=== PATIENT | female | born 1980 | race Hispanic/Latino ===

== ENCOUNTER → 2022-11-10 11:24 | Outpatient (CLI) | payer OTHER, SELFPAY ==
--- NOTE | ~2022-11-10 | US_ITS ---
Pelvic ultrasound. Clinical History: Abnormal uterine bleeding Technique: Realtime transabdominal and transvaginal scanning of the pelvis was performed. Color flow Doppler and Doppler spectral analysis were performed. Findings: The uterus is anteverted. The endometrial stripe has a thickness of 10 mm. No focal mass i s identified. The right ovary measures 3.7 x 2.6 x 3.0 cm. No significant right ovarian or adnexal mass is seen. The left ovary measures 2.4 x 1.4 x 1.8 cm. No significant left ovarian or adnexal mass is seen. Vascular flow present in both ovaries on Doppler spectral analysis. There is no evidence of free fluid in the cul de sac. Impression: No significant abnormality seen. Reviewed, dictated and finalized at [facility]. Impression: No significant abnormality seen.
== END ==
PROVIDERS: PCP Obstetrics & Gynecology Gynecology; Visit Provider Obstetrics & Gynecology Gynecology
DX: N93.8 Other specified abnormal uterine and vaginal bleeding (principal)
CPT/HCPCS: 76856

== ENCOUNTER 2022-12-29 11:36 | Outpatient (CLI) | payer OTHER, SELFPAY ==
[2022-12-29 12:06] LABS: Hematocrit 40.2 % (37.0-47.0); Hemoglobin 13.4 g/dL (12.0-15.0); Mean Corpuscular HGB Conc 33.3 g/dl (32-36); Mean Corpuscular Hemoglobin 30.8 pg (26-34); Mean Corpuscular Volume 92.4 fl (80-100); Mean Platelet Volume 9.6 fl (7.4-10.4); Platelet Count Result 233 k/mm3 (150-375); Red Blood Count 4.35 M/mm3 (4.2-5.4); Red Cell Distribution Width 11.8 % (11.5-14.5); White Blood Count 5.8 K/mm3 (4.5-10.0)
[2022-12-29 12:19] LABS: Anion Gap 5 mmol/L (8-16); Blood Urea Nitrogen 13 mg/dL (7-17); Calcium 9.4 mg/dL (8.4-10.2); Carbon Dioxide 29 mmol/L (22-30); Chloride 102 mmol/L (98-107); Estimated Glomerular Filt Rate > 60; Glucose 84 mg/dL (65-110); Potassium 3.7 mmol/L (3.4-5.0); Sodium 136 mmol/L (137-145)
[2022-12-29 12:42] LABS: Vitamin D 25 Hydroxy 50.4 ng/mL
== END 2022-12-29 11:37 | disposition home or self-care (01) ==
PROVIDERS: Anesthesiology; PCP Family Medicine; Visit Provider Obstetrics & Gynecology Gynecology
DX: E55.9 Vitamin D deficiency, unspecified (principal); Z79.899 Other long term (current) drug therapy
CPT/HCPCS: 36415; 80048; 82306; 82728; 85027

== ENCOUNTER 2023-01-02 00:56 | Day surgery (SDC) | payer OTHER, SELFPAY ==
[2022-12-26 14:18] VITALS: BMI 24.9
--- NOTE | 2022-12-26 14:36 | PC.NURSE ---
Addendum entered by Marisa Herrera RN 12/28/22 13:09: HANDWROTE ARRIVAL TIME OF 1115 WITH A SURGERY TIME OF 1315 ON 01/02 TO PT'S PREOP INSTRUCTIONS. Addendum entered by Marisa Herrera RN 12/28/22 13:05: PLEASE DO NOT TAKE ANY MEDS THE MORNING OF SURGERY. Addendum entered by Dorothea Cruz RN 12/27/22 16:59: patient's bmp ordered for outpatient pre testing. Rn called patient and patient transferred to home care scheduler's voicemail to make appt for bmp lab work. Addendum entered by Dorothea Cruz RN 12/27/22 15:26: 12-27-2022: patient notified to not take any morning meds the morning of surgery. She will be npo and without ANY medications that morning. Instructed to hold the amiloride and the losartan and potassium citrate the morning of surgery. Notified she will need blood work (BMP) the morning of surgery. Original Note: Report to the Outpatient Waiting Room, entrance under the green pavilion located off [facility], at time on date . Planned Procedure Time: . Time changes happen often and if your time is changed the preop area will call you the afternoon before. - You and your visitor will be asked to self-screen and do not enter if you have any COVID symptoms. - A mask is optional within the hospital at this time. Patients may have clear liquids (water, carbonated beverages, clear teas, apple juice) until 3 hours prior to surgery with a maximum of 20 ounces. - No food from midnight until time of surgery - Take the following medications with a SIP of water the morning of surgery: __Amiloride, losartan____ DO NOT STOP ANY OF YOUR OTHER PRESCRIPTION MEDICATIONS PRIOR TO SURGERY ?EXCEPT THE FOLLOWING Medications to discontinue per physician ____do not take potassium citrate the morning of surgery only. may take until the morning of. Please no make-up, nail persian, hairspray, perfume, deodorant, or body powder the day of surgery. No jewelry (including any body piercings) or valuables the day of surgery, leave them at home. Please take a shower or bath the night before, or the morning of, surgery with an antibacterial soap. Wear comfortable, loose fitting clothing. Children are encouraged to wear pajamas. - Jewelry must be removed prior to entering the operating room. Rings and piercings that are not removed may be cut off. - The hospital will not accept responsibility for valuables. - Please leave all valuables, including medications, at home the day of surgery. If you are going home after surgery, a licensed driver engineer must drive you home. - NO public transportation without another adult if you receive anesthesia. - We recommend that an adult stay with you for 24 hours following discharge. - We also recommend that you do not drive, make important decision, drink alcoholic beverages, or take any drugs that were not prescribed by your health care provider for at least 24 hours after your discharge time. . Follow any additional instructions given to you from your surgeon. If you or anyone in your household have experienced Covid symptoms in the past week, please notify your surgeon or the nurse liaison at the phone number below for possible testing. Telephone instructions given to __Mirian (patient) and asked if any additional questions and then verbalized understanding. Patient advised to call surgeon office or pre surgery nurse liaison [phone] if any additional questions.
--- NOTE | 2023-01-02 07:31 | P.HP_ITS ---
History of Present Illness History of Present Illness Consent: Risks, benefits, and alternatives have been discussed and questions answered. Patient agrees to proceed with procedure. Chief complaint: Menorrhagia with anemia Narrative: Mirian Blanca is a 42 year old female with chronic anemia. Patient has received iron transfusions. The GI workup has been negative. Review of her cycles reveals changing her pad every 2hours for 24hours each cycle. Pelvic ultrasound was normal. It was recommended to proceed with D&C hysteroscopy to further evaluate. Risks of infection, bleeding, perforation, and possible pathology are reviewed. Patient voices understanding and agrees to proceed. 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 Social History Social History Smoking status: Never smoker Second hand tobacco smoke exposure: Yes (not currently) Substance use: never Substance use type: does not use Living arrangements: with family Spiritual care concerns: No Meds Home Medications and Allergies Home Medications Medication Instructions Recorded Confirmed Type amiloride 5 mg tablet 5 mg PO DAILY 12/26/22 12/26/22 History ketoconazole 2 % shampoo applic topical 12/26/22 History losartan 25 mg tablet 25 mg PO DAILY 12/26/22 12/26/22 History potassium citrate 10 mEq (1,080 10 meq PO QID 12/26/22 12/26/22 History mg) tablet,extended release Allergies Allergy/AdvReac Type Severity Reaction Status Date / Time No Known Allergies Allergy Verified 12/26/22 14:48 Exam Const: General: healthy appearing and alert Orientation/consciousness: patient oriented x3 Resp: Effort & Inspection: normal respiratory effort GI: GI Palp: Yes Soft to palpation, No Tenderness to palpation present (GI) and No Palpable mass present : External Female Exam: normal external appearance Speculum Exam - Vagina: normal appearance of the vagina and normal vaginal discharge Speculum Exam - Cervix: normal appearance of the cervix Bimanual exam- vagina & uterus: uterine size normal, consistency normal and other (Pelvic floor tense and tender bilateral) Bimanual Exam- Adnexa, other: normal adnexae and No adnexal tenderness Neuro: General: patient oriented x3 Assessment and Plan Assessment and plan (1) Menorrhagia: Code(s): N92.0 - Excessive and frequent menstruation with regular cycle Status: Acute Assessment and Plan: Plan to proceed with D&C hysteroscopy for further evaluation (2) Anemia: Code(s): D64.9 - Anemia, unspecified Status: Acute
--- NOTE | 2023-01-02 07:31 | WPDHPUPDATE1 ---
History and Physical Update Update Date/Time: 01/02/23 07:31 History and Physical has been reviewed, including an updated exam of the patient. There are NO changes in the patient's condition. Risks, benefits, and alternatives have been discussed and questions answered. Patient agrees to proceed with procedure.
[2023-01-02 11:38] VITALS: BP 127/77; PULSE 60; RESP 20; TEMP 36.7; O2SAT 100
[2023-01-02] MEDS: ACETAMINOPHEN 500 MG TABLET 1000 MG PO (12:03)
[2023-01-02] MEDS: LACTATED RINGERS 1,000 ML 30 ML IV CONT (12:15)
--- NOTE | 2023-01-02 12:24 | P.PNAN_ITS ---
Anes - Initial Pre Proc Eval Procedure: Operation Date: 01/02/23 13:15 Proposed Procedures p Hysteroscopy Dilation and Curettage - Shirlene Wyman MD Date/Time: 01/02/23 12:24 Surgeon: Shirlene Wyman MD Pre Op Diagnosis: Menorrhagia with anemia Patient Data Age: 42 Gender: F Height: 1.57 m Weight: 61.8 kg Allergies Allergy/AdvReac Type Severity Reaction Status Date / Time No Known Allergies Allergy Verified 01/02/23 11:42 Home Medications Medication Instructions Recorded Confirmed Type amiloride 5 mg tablet 5 mg PO DAILY 12/26/22 01/02/23 History ketoconazole 2 % shampoo applic topical 12/26/22 History losartan 25 mg tablet 25 mg PO DAILY 12/26/22 01/02/23 History potassium citrate 10 mEq (1,080 10 meq PO QID 12/26/22 01/02/23 History mg) tablet,extended release Patient hx anesthesia problems: none Family hx anesthesia problems: none Results Review: All pre-operative results and documents have been reviewed as part of the pre- operative evaluation. 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 Social History Social History Smoking status: Never smoker Second hand tobacco smoke exposure: Yes (not currently) Substance use: never Substance use type: does not use Living arrangements: with family Spiritual care concerns: No Anes - Eval Final PreProcedure Day of Procedure 01/02/23 12:24 Patient weight: normal Heart: regular rate and rhythm Lungs: clear to auscultation Airway: Mallampati scale class II Neurological: alert and oriented Last oral intake: >/= 8 hours ASA classification: II Emergent: no Anesthetic plan: proceed Anesthesia type and monitoring: general GIVS and standard monitoring Results Review: All pre-operative results and documents have been reviewed as part of the pre- operative evaluation. Informed Consent: The patient's anesthetic plan and its attendant risks and benefits were discussed with the patient/family/POA. Questions were solicited and answers provided to the satisfaction of the patient/family/POA.
[2023-01-02] MEDS: KETOROLAC 30 MG/ML VIAL (*BKC) IV PUSH (12:54)
[2023-01-02] MEDS: LIDOCAINE HCL 1% LOCAL INJ 20 ML VIAL 10 ML INFILTRATE (12:57)
--- NOTE | 2023-01-02 13:05 | W.PM.PROC2 ---
Procedure Note - Detailed Date of Procedure 01/02/23 Pre-op Diagnosis Menorrhagia with anemia Post-op Diagnosis Same Procedure Performed D&C hysteroscopy Surgeon Shirlene Wyman MD Anesthesia MAC Findings Uterus sounds to 8cm and appears grossly normal secretory Description of Procedure The patient is taken to the operating room and placed under anesthesia in the dorsal lithotomy position. She was prepped and draped in the usual sterile fashion. Marion speculum was placed in the vagina and the cervix grasped on the anterior lip with a tenaculum. The uterus is sounded to 8cm. The diagnostic hysteroscope was placed and with no abnormalities noted it is removed. The 00 sharp curette is used to curette the endometrium until a good uterine cry was noted in all areas. All instruments were then removed. Patient was awakened from anesthesia and taken to recovery in stable condition. Sponge, needle, and instrument counts are correct per the OR staff. Estimated Blood Loss 5 Drains No Packing No Pathology Yes (Endometrial curettings) Complications No immediate complications Condition Stable Disposition PACU
[2023-01-02 13:07] VITALS: BP 110/69; PULSE 65; RESP 16; O2SAT 100
[2023-01-02 13:35] VITALS: BP 106/74; PULSE 60; RESP 16; O2SAT 100
[2023-01-02 14:00] VITALS: BP 113/90; PULSE 57; RESP 16
== END 2023-01-02 14:16 | disposition home or self-care (01) ==
PROVIDERS: PCP Family Medicine; Visit Provider Obstetrics & Gynecology Gynecology
PROC: 0U5B8ZZ Destruction of Endometrium, Via Natural or Artificial Opening Endoscopic (ICD-10-PCS; CPT 58563; principal; 2023-01-02 13:15)
DX: N92.0 Excessive and frequent menstruation with regular cycle (principal); I10 Essential (primary) hypertension; D64.9 Anemia, unspecified
CPT/HCPCS: 58558; 88305; A9270; J1885; J2250; J2704; J3010; J7120

== ENCOUNTER 2024-07-26 10:35 | Outpatient (CLI) | payer OTHER, SELFPAY ==
--- NOTE | ~2024-07-26 | US_ITS ---
Pelvic ultrasound. Clinical History: Abnormal uterine bleeding Technique: Realtime transabdominal scanning of the pelvis was performed. Color flow Doppler and Doppl er spectral analysis were performed. Findings: The uterus is anteverted, and measures 9.9 x 4.1 x 5.3 cm. The endometrial stripe has a th ickness of 14 mm. No focal mass is identified. The right ovary measures 2.5 x 1.8 x 3.1 cm. No significant right ovarian or adnexal mass is seen. The left ovary measures 2.9 x 1.8 x 2.4 cm. No significant left ovarian or adnexal mass is seen. There is no evidence of free fluid in the cul de sac. Impression: Unremarkable pelvic ultrasound. Reviewed, dictated and finalized at location . Impression: Unremarkable pelvic ultrasound.
== END 2024-07-26 10:36 | disposition home or self-care (01) ==
PROVIDERS: PCP Family Medicine; Visit Provider Nurse Practitioner
DX: N93.8 Other specified abnormal uterine and vaginal bleeding (principal); R10.2 Pelvic and perineal pain
CPT/HCPCS: 76856

== ENCOUNTER 2024-07-26 10:39 | Outpatient (CLI) | payer OTHER, SELFPAY ==
--- NOTE | ~2024-07-26 | US_ITS ---
Renal-Bladder ultrasound Clinical History: Nephrolithiasis Technique: Real-time sonographic imaging of the kidneys and urinary bladder was performed. Findings: The right kidney measures 9.1 cm in length and the left kidney measures 9.3 cm. There is mi ld bilateral hydronephrosis. Renal cortical echogenicity is within normal limits. No renal mass lesio n is identified. The urinary bladder is moderately distended at the time of this exam. No intraluminal echoes are iden tified. No abnormal wall thickening is seen. Impression: Mild bilateral hydronephrosis. Reviewed, dictated and finalized at location M. Impression: Mild bilateral hydronephrosis.
== END 2024-07-26 10:40 | disposition home or self-care (01) ==
LOC: MICIMG 10:39
PROVIDERS: PCP Family Medicine
DX: N13.30 Unspecified hydronephrosis (principal); N20.0 Calculus of kidney
CPT/HCPCS: 76775

== ENCOUNTER 2024-11-25 00:33 | Day surgery (SDC) | payer OTHER, SELFPAY ==
[2024-11-14 09:49] VITALS: BMI 25.4
--- NOTE | 2024-11-14 10:02 | SUR.PREOP ---
Report to the Outpatient Waiting Room, entrance under the green pavilion located off [facility], at time 0600 on date 11/25/24. Planned Procedure Time: 0730.? Time changes happen often and if your time is changed the preop area will call you the afternoon before. - You and your visitor will be asked to self-screen and do not enter if you have any COVID symptoms. Please call surgeon if you need to reschedule. - A mask is optional within the hospital at this time. Patients may have clear liquids (water, carbonated beverages, clear teas, apple juice) until 3 hours prior to surgery with a maximum of 20 ounces. - No food from midnight until time of surgery and no smoking, or chewing tobacco (or any form of nicotine). No chewing gum, candy or mints. - Infants may have breast milk until 4 hours before surgery, formula 6 hours prior to surgery. - Children will be allowed to drink immediately following surgery.? If applicable, please bring a bottle or sippy cup to assist with drinking. Juice, water, soda, and popsicles are readily available.? For infants on formula, please bring formula the day of surgery.? Pacifiers are allowed. Take only the following medications with a SIP of water on the morning of surgery: _hold morning meds day of surgery DO NOT STOP ANY OF YOUR OTHER PRESCRIPTION MEDICATIONS PRIOR TO SURGERY EXCEPT THE FOLLOWING Hold all vitamins and supplements for 3 days per anesthesiologist. Medications to discontinue per physician ____amiloride, losartan, potassium morning of surgery Date to take last dose Please no make-up, nail greenlandic, hairspray, perfume, deodorant, or body powder the day of surgery.? No jewelry (including any body piercings) or valuables the day of surgery, leave them at home.? Please take a shower or bath the night before, or the morning of, surgery with an antibacterial soap.? Wear comfortable, loose fitting clothing.? Children are encouraged to wear pajamas. - Jewelry must be removed prior to entering the operating room.? Rings and piercings that are not removed may be cut off. - The hospital will not accept responsibility for valuables.? - Please leave all valuables, including medications, at home the day of surgery. If you are going home after surgery, a licensed hazmat cdl a driver must drive you home.? - NO public transportation without another adult if you receive anesthesia. - We recommend that an adult stay with you for 24 hours following discharge. - We also recommend that you do not drive, make important decision, drink alcoholic beverages, or take any drugs that were not prescribed by your health care provider for at least 24 hours after your discharge time. For Pediatric surgeries, we recommend two adults accompany the child home. Follow any additional instructions given to you from your surgeon. Telephone instructions given to _patient_and asked if any additional questions and then verbalized understanding. Patient advised to call surgeon office or pre surgery nurse liaison [phone] if any additional questions.
--- OUTSIDE RECORDS SUMMARY | 2024-11-25 00:36 | XMS_ITS | Encounter Summary ---
Author Organization [facility] Address [address] [place] [id number] Care Team Providers Care Web Development Manager Name Role Phone Olivia Roman DO Primary Care Provider [phone] Encounter Details Date Type Department Care Team (Latest Contact Info) Description 10/28/2019 [place] Message Enc [facility] Multispecialty Care - [facility] 3 [facility], [address] [phone] Jackson Sal MD 3 [facility], [address] [phone] Medication Questions Social History Tobacco Use Types Packs/Day Years Used Date Smoking Tobacco: Never Smokeless Tobacco: Never Alcohol Use Standard Drinks/Week Comments Not Currently 0 (1 standard drink = 0.6 oz pur e alcohol) PHQ-2 Answer Date Recorded PHQ-2 Score 0 09/19/2019 Comments No Sex and Gender Information Value Date Recorded Sex Assigned at Female 03/19/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
--- OUTSIDE RECORDS SUMMARY | 2024-11-25 00:36 | XMS_ITS | Encounter Summary ---
Author Organization [facility] Address Count includes the [facility] [place] [address] Care Team Providers Care Director Of Collections And Archives Name Role Phone Olivia Roman DO Primary Care Provider [phone] Encounter Details Date Type Department Care Team (Late st Contact Info) Description 03/15/2020 ConsortiEXt Message Enc [facility] Medical Group Multispecialty Care - [facility] 3 [facility], [address] [place] [phone] Arpita France APNP [address] [place] [address] Question Social History Tobacco Use Types Packs/Day Years Used Date Smoking Tobacco: Never Smokeless Tobacco: Never Alcohol Use Standard Drinks/Week Comments Not Currently 0 (1 standard drink = 0.6 oz pur e alcohol) PHQ-2 Answer Date Recorded PHQ-2 Score 0 09/19/2019 Comments No Sex and Gender Information Value Date Recorded Sex Assigned at Female 03/19/2024 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 No / Unsure 03/13/2020 7:38 AM NONPROFIT FUNDRAISER documented as of this encounter Plan of Treatment Not on file documented as of this encounter Visit Diagnoses Not on filedocumented in this encounter Additional Health Concerns Infection Onset Date Last Indicated Resolved Time COVID-19 Rule Out 06/23/2021 06/23/2021 06/23/2021 9:50 AM CDT COVID-19 Rule Out 07/13/2022 07/13/2022 07/13/2022 12:20 PM CDT Assessment Noted Time PHQ-9 Depression Total Score: 10 019 9:47 AM NONPROFIT FUNDRAISER documented as of this encounter Care Teams Director Of Collections And Archives Relationship Specialty [place] [address] [place] [id number] PCP - General FAMILY PRACTICE 11/22/19 documented as of this encounter
--- OUTSIDE RECORDS SUMMARY | 2024-11-25 00:36 | XMS_ITS | Encounter Summary ---
Author Organization [facility] Address [address] [place] [address] Care Team Providers Care Websphere Administrator Name Role Phone Olivia Roman DO Primary Care Provider [phone] Encounter Details Date Type Department Care Team (Late st Contact Info) Description 05/19/2022 Therapy Plan [facility] [place] [address] Olivia Roman DO [facility] [place] [address] Social History Tobacco Use Types Packs/Day Years Used Date Smoking Tobacco: Never Smokeless Tobacco: Never Alcohol Use Standard Drinks/Week Comments Not Currently 0 (1 standard drink = 0.6 oz pur e alcohol) PHQ-2 Answer Date Recorded Patient Health Questionnaire-2 Score 0 05/10/2022 Comments No Sex and Gender Information Value Date Recorded Sex Assigned at Female 03/19/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 No / Unsure 05/20/2022 2:20 PM CDT documented as of this encounter Plan of Treatment Not on file documented as of this encounter Visit Diagnoses Diagnosis Anemia, unspecified- Primary documented in this encounter Additional Health Concerns Infection Onset Date Last Indicated Resolved Time COVID-19 Rule Out 07/13/2022 07/13/2022 07/13/2022 12:20 PM CDT Assessment Noted Time PHQ-9 Depression Total Score: 5 05/20/19 22 10:03 AM CDT documented as of this encounter Care Teams Websphere Administrator Relationship Specialty Start Date End Date Olivia Roman DO [address] [place] [address] PCP - General FAMILY PRACTICE 11/22/19 documented as of this encounter
--- OUTSIDE RECORDS SUMMARY | 2024-11-25 00:36 | XMS_ITS | Encounter Summary ---
Author Organization [facility] Address [address] [place] [address] Care Team Providers Care Utilization Review Specialist Name Role Phone Olivia Roman Primary Care Provider [phone] Encounter Details Date Type Department Care Team (Late st Contact Info) Description 09/11/2019 Bardolino Grillet Message Enc [facility] Medical [facility] Family Medicine - [place] [address], [address] [place] [phone] Ambrosio Beth DO [address] [place], [place] [phone] RE: Referral Request Social History Tobacco Use Types Packs/Day Years Used Date Smoking Tobacco: Never Smokeless Tobacco: Never Alcohol Use Standard Drinks/Week Comments Not Currently 0 (1 standard drink = 0.6 oz pur e alcohol) PHQ-2 Answer Date Recorded PHQ-2 Score 3 02/14/2019 Comments No Sex and Gender Information Value Date Recorded Sex Assigned at Female 03/19/2024 9:04 AM 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 No / Unsure 09/09/2019 3:34 PM CDT documented as of this encounter [...] Depression Total Score: 10 019 9:47 AM SIGN OUT CLERK documented as of this encounter Care Teams Utilization Review Specialist Relationship Specialty Start Date End Date Olivia Roman DO [address] [place] [id number] PCP - General FAMILY PRACTICE 11/22/19 documented as of this encounter
--- OUTSIDE RECORDS SUMMARY | 2024-11-25 00:36 | XMS_ITS | Encounter Summary ---
Author Organization [facility] Address Formerly [facility] [place] [address] Care Team Providers Care Web Content Manager Name Role Phone Olivia Roman DO Primary Care Provider [phone] Encounter Details Date Type Department Care Team (Late st Contact Info) Description 12/02/2019 FluGent Message Enc [facility] Medical Group Multispecialty Care - [facility] 3 [facility], [address] [phone] Jackson Sal MD 3 [facility], [address] [id number] Test Results Social History Tobacco Use Types Packs/Day Years Used Date Smoking Tobacco: Never Smokeless Tobacco: Never Alcohol Use Standard Drinks/Week Comments Not Currently 0 (1 standard drink = 0.6 oz pur e alcohol) PHQ-2 Answer Date Recorded PHQ-2 Score 0 09/19/2019 Comments No Sex and Gender Information Value Date Recorded Sex Assigned at Female 03/19/2024 9:04 AM CONTRACTS ATTORNEY Legal Sex Female 2:39 PM CDT Gender Identity Not on file Sexual Orientation Not on file COVID-19 Exposure Response Date Recorded In the last month, have you been in contact with someone who was confirmed or suspected to have Coronavirus / COVID-19? No / Unsure 11/29/2019 2:40 PM CDT documented as of this encounter Progress Notes * Jackson Sal MD - 12/03/2019 2:16 PM CDT PTH is different from the thyroid; Level is appropriate; no further labs needed in that regard thx * Urszula Coyne MA - 12/03/2019 7:50 AM CDTFrom: Mirian Kim Evangelist To: Jackson Sal MD Sent: 12/02/2019 10:23 PM CDT Subject: Test Results Hello, With my PTH being mildly low the normal range. Do you recommend I get a full thyroid panel and/or get my phosphorus levels checked? Thank you. documented in this encounter Plan of Treatment Not on file documented as of this encounter Visit Diagnoses Not on filedocumented in this encounter Additional Health Concerns Infection Onset Date Last Indicated Resolved Time COVID-19 Rule Out 06/23/2021 06/23/2021 06/23/2021 9:50 AM CDT COVID-19 Rule Out 07/13/2022 07/13/2022 07/13/2022 12:20 PM CDT Assessment Noted Time PHQ-9 Depression Total Score: 10 019 9:47 AM CONTRACTS ATTORNEY documented as of this encounter Care Teams Web Content Manager Relationship Specialty Start Date End Date Olivia Roman DO [address] [place] [address] PCP - General FAMILY PRACTICE 11/22/19 documented as of this encounter
--- OUTSIDE RECORDS SUMMARY | 2024-11-25 00:36 | XMS_ITS | Encounter Summary ---
Author Organization [facility] Address [address] [place] [address] Care Team Providers Care Events Director Name Role Phone Olivia Roman DO Primary Care Provider [phone] Encounter Details Date Type Department Care Team (Late st Contact Info) Description 12/31/2019 Yuanpei Translation Message Enc [facility] Medical Group Multispecialty Care - [address], [address] [place] [address] [facility] Provider [facility] hour urine Social History Tobacco Use Types Packs/Day Years Used Date Smoking Tobacco: Never Smokeless Tobacco: Never Alcohol Use Standard Drinks/Week Comments Not Currently 0 (1 standard drink = 0.6 oz pur e alcohol) PHQ-2 Answer Date Recorded PHQ-2 Score 0 09/19/2019 Comments No Sex and Gender Information Value Date Recorded Sex Assigned at Female 03/19/2024 9:04 AM CHEMICAL TREATMENT PLANT TECHNICIAN Legal Sex Female 2:39 PM CDT Gender Identity Not on file Sexual Orientation Not on file COVID-19 Exposure Response Date Recorded In the last month, have you been in contact with someone who was confirmed or suspected to have Coronavirus / COVID-19? No / Unsure 01/03/2020 2:30 PM CDT documented as of this encounter [...] Depression Total Score: 10 019 9:47 AM CHEMICAL TREATMENT PLANT TECHNICIAN documented as of this encounter Care Teams Events Director Relationship Specialty Start Date End Date Olivia Roman DO [address] [place] [address] PCP - General FAMILY PRACTICE 11/22/19 documented as of this encounter
--- OUTSIDE RECORDS SUMMARY | 2024-11-25 00:36 | XMS_ITS | Encounter Summary ---
Author Organization [facility] Address [facility] [place] [address] Care Team Providers Care Acoustical Logging Engineer Name Role Phone Olivia Roman DO Primary Care Provider [phone] Reason for Visit * Reason Onset Date Comments Follow Up Call 03/12/2020 blood pressure Encounter Details Date Type Department Care Team (Late st Contact Info) Description 03/12/2020 demandmart Message Enc [facility] Medical Group Family Medicine - [place] [address] [facility], [address] [place] [phone] Olivia Roman DO [address] [place] [address] RE: Follow Up/Update Social History Tobacco Use Types Packs/Day Years Used Date Smoking Tobacco: Never Smokeless Tobacco: Never Alcohol Use Standard Drinks/Week Comments Not Currently 0 (1 standard drink = 0.6 oz pur e alcohol) PHQ-2 Answer Date Recorded PHQ-2 Score 0 09/19/2019 Comments No Sex and Gender Information Value Date Recorded Sex Assigned at Female 03/19/2024 9:04 AM PERIOPERATIVE NURSE Legal Sex Female 2:39 PM CDT Gender Identity Not on file Sexual Orientation Not on file COVID-19 Exposure Response Date Recorded In the last month, have you been in contact with someone who was confirmed or suspected to have Coronavirus / COVID-19? No / Unsure 03/13/2020 7:38 AM PERIOPERATIVE NURSE documented as of this encounter Progress Notes * India Porter RN - 03/12/2020 4:22 PM CST Called patient and she states her blood pressure has gradually increased over the last month or so.She states it was in the 130's but recently it has been 140/109 and today 141/104. She wonders if it is higher due to the pain she is having. She states she has an appointment on 03/18/[address] Boyer. Patient has been scheduled with Dr. Roman for Monday03/13/20 for evaluation. OPERATIVE NURSE documented in this encounter Plan of Treatment Not on file documented as of this encounter Visit Diagnoses Not on filedocumented in this encounter Additional Health Concerns Infection Onset Date Last Indicated Resolved Time COVID-19 Rule Out 06/23/2021 06/23/2021 06/23/2021 9:50 AM CDT COVID-19 Rule Out 07/13/2022 07/13/2022 07/13/2022 12:20 PM CDT Assessment Noted Time PHQ-9 Depression Total Score: 10 019 9:47 AM PERIOPERATIVE NURSE documented as of this encounter Care Teams Acoustical Logging Engineer Relationship Specialty Start Date End Date Olivia Roman DO [address] [place] [id number] PCP - General FAMILY PRACTICE 11/22/19 documented as of this encounter
--- OUTSIDE RECORDS SUMMARY | 2024-11-25 00:36 | XMS_ITS | Encounter Summary ---
Author Organization [facility] Address [facility] [place] [address] Care Team Providers Care Branch General Manager Name Role Phone Olivia Roman DO Primary Care Provider [phone] Encounter Details Date Type Department Care Team (Latest Contact Info) Description 12/27/2019 VMIX Media Message Enc [facility] Medical Group Multispecialty Care - [facility] 3 [facility], [address] [place] [address] Arpita France APNP [address] [place] [address] Follow Up/Update Social History Tobacco Use Types Packs/Day Years Used Date Smoking Tobacco: Never Smokeless Tobacco: Never Alcohol Use Standard Drinks/Week Comments Not Currently 0 (1 standard drink = 0.6 oz pur e alcohol) PHQ-2 Answer Date Recorded PHQ-2 Score 0 09/19/2019 Comments No Sex and Gender Information Value Date Recorded Sex Assigned at Female 03/19/2024 9:04 AM EXHIBIT SPECIALIST Legal Sex Female 2:39 PM CDT Gender Identity Not on file Sexual Orientation Not on file COVID-19 Exposure Response Date Recorded In the last month, have you been in contact with someone who was confirmed or suspected to have Coronavirus / COVID-19? No / Unsure 12/23/2019 10:29 AM CDT documented as of this encounter Progress Notes * Paty Hernandez MA - 12/31/2019 10:44 AM CDT Are you okay with this? documented in this encounter Plan of Treatment Not on file documented as of this encounter Visit Diagnoses Not on filedocumented in this encounter Additional Health Concerns Infection Onset Date Last Indicated Resolved Time COVID-19 Rule Out 06/23/2021 06/23/2021 06/23/2021 9:50 AM CDT COVID-19 Rule Out 07/13/2022 07/13/2022 07/13/2022 12:20 PM CDT Assessment Noted Time PHQ-9 Depression Total Score: 10 02/14/ 019 9:47 AM EXHIBIT SPECIALIST documented as of this encounter Care Teams Branch General Manager Relationship Specialty Start Date End Date Olivia Roman DO [address] [place] [address] PCP - General FAMILY PRACTICE 11/22/19 documented as of this encounter
--- OUTSIDE RECORDS SUMMARY | 2024-11-25 00:36 | XMS_ITS | Encounter Summary ---
Author Organization [facility] Address [address] [place] [address] Care Team Providers Care Customer Support Consultant Name Role Phone Olivia Roman DO Primary Care Provider [phone] Encounter Details Date Type Department Care Team (Late st Contact Info) Description 05/10/2022 [employer] Message Enc [facility] Medical Group Family Medicine - [place] [address] [facility], [address] [place] [address] Olivia Roman DO [address] [place], [place] [phone] Lab test Social History Tobacco Use Types Packs/Day Years Used Date Smoking Tobacco: Never Smokeless Tobacco: Never Alcohol Use Standard Drinks/Week Comments Not Currently 0 (1 standard drink = 0.6 oz pur e alcohol) PHQ-2 Answer Date Recorded Patient Health Questionnaire-2 Score 0 05/10/2022 Comments No Sex and Gender Information Value Date Recorded Sex Assigned at Female 03/19/2024 9:04 AM CIRCUIT BOARD INSPECTOR Legal Sex Female 2:39 PM CDT Gender Identity Not on file Sexual Orientation Not on file COVID-19 Exposure Response Date Recorded In the last 10 days, have yo u been in contact with someone who was confirmed or suspected to have Coronavirus/COVID-19? No / Unsure 05/11/2022 8:45 AM CIRCUIT BOARD INSPECTOR documented as of this encounter Functional Status * Over the past 2 weeks, how often have you been bothered by any of the following problems? Question Answer Date of Assessment Author Status Little interest or pleasure in doing things Not at all 05/10/2022 8:15 AM Sahra Nuñez MA Act milo Feeling down, depressed, or hopeless Not at all 05/10/2022 8:15 AM Sahra Nuñez MA Active Patient Health Questionnaire-2 Score 0 05/10/2022 8:15 AM Sahra Nuñez MA Active documented as of this encounter Plan of Treatment Not on file documented as of this encounter Visit Diagnoses Not on filedocumented in this encounter Additional Health Concerns Infection Onset Date Last Indicated Resolved Time COVID-19 Rule Out 07/13/2022 07/13/2022 07/13/2022 12:20 PM CDT Assessment Noted Time PHQ-9 Depression Total Score: 5 05/20/19 22 10:03 AM CDT documented as of this encounter Care Teams Customer Support Consultant Relationship Specialty [place] [address] [place] [address] PCP - General FAMILY PRACTICE 11/22/19 documented as of this encounter
--- OUTSIDE RECORDS SUMMARY | 2024-11-25 00:36 | XMS_ITS | Encounter Summary ---
Author Organization [facility] Address [address] [place] [address] Care Team Providers Care Pump House Operator Name Role Phone Olivia Roman DO Primary Care Provider [phone] Encounter Details Date Type Department Care Team (Late st Contact Info) Description 05/04/2020 [employer]Practice Group Message Enc [facility] Medical Group Multispecialty Care - [facility] 3 [facility], [address] [phone] [place], [facility] Provider RE:Appointment Social History Tobacco Use Types Packs/Day Years Used Date Smoking Tobacco: Never Smokeless Tobacco: Never Alcohol Use Standard Drinks/Week Comments Not Currently 0 (1 standard drink = 0.6 oz pur e alcohol) PHQ-2 Answer Date Recorded PHQ-2 Score - If the patient scores above 3, please move on to questions 3-9 0 03/26/2020 Comments No Sex and Gender Information Value Date Recorded Sex Assigned at Female 03/19/2024 9:04 AM FIELD AIDE Legal Sex Female 2:39 PM CDT Gender Identity Not on file Sexual Orientation Not on file COVID-19 Exposure Response Date Recorded In the last month, have you been in contact with someone who was confirmed or suspected to have Coronavirus / COVID-19? No / Unsure 04/20/2020 2:54 PM FIELD AIDE documented as of this encounter Plan of Treatment Not on file documented as of this encounter Visit Diagnoses Not on filedocumented in this encounter Additional Health Concerns Infection Onset Date Last Indicated Resolved Time COVID-19 Rule Out 06/23/2021 06/23/2021 06/23/2021 9:50 AM CDT COVID-19 Rule Out 07/13/2022 07/13/2022 07/13/2022 12:20 PM CDT Assessment Noted Time PHQ-9 Depression Total Score: 10 019 9:47 AM FIELD AIDE documented as of this encounter Care Teams Pump House Operator Relationship Specialty Start Date End Date Olivia Roman DO [address] [place] [address] PCP - General FAMILY PRACTICE 11/22/19 documented as of this encounter
--- OUTSIDE RECORDS SUMMARY | 2024-11-25 00:36 | XMS_ITS | Encounter Summary ---
Author Organization [facility] Address [address] [place] [address] Care Team Providers Care Director Surface Transportation Name Role Phone Olivia Roman DO Primary Care Provider [phone] Encounter Details Date Type Department Care Team (Late st Contact Info) Description 02/12/2024 Think[employer] Message Enc [facility] Medical Group Family Medicine - [place], [address] [place] [address] [place], [facility] Provider Lab error Social History Tobacco Use Types Packs/Day Years Used Date Smoking Tobacco: Never Passive Smoke Exposure: Never Smokeless Tobacco: Never Alcohol Use Standard Drinks/Week Comments Not Currently 0 (1 standard drink = 0.6 oz pur e alcohol) PHQ-2 Answer Date Recorded Patient Health Questionnaire-2 Score 0 10/30/2023 Comments No Sex and Gender Information Value Date Recorded Sex Assigned at Female 03/19/2024 9:04 AM METALLURGICAL TESTER Legal Sex Female 2:39 PM CDT Gender Identity Not on file Sexual Orientation Not on file documented as of this encounter Plan of Treatment Not on file documented as of this encounter Visit Diagnoses Not on filedocumented in this encounter Additional Health Concerns Assessment Noted Time PHQ-9 Depression Total Score: 0 10/30/19 24 2:12 PM CDT documented as of this encounter Care Teams Director Surface Transportation Relationship Specialty Start Date End Date Olivia Roman DO [address] [place] [address] PCP - General FAMILY PRACTICE 11/22/19 documented as of this encounter
--- OUTSIDE RECORDS SUMMARY | 2024-11-25 00:36 | XMS_ITS | Encounter Summary ---
Author Organization [facility] Address [facility] [place] [address] Care Team Providers Care Housing And Residence Life Director Name Role Phone Olivia Roman DO Primary Care Provider [phone] Encounter Details Date Type Department Care Team (Late st Contact Info) Description 03/11/2020 SocialBuyt Message Enc [facility] Medical Group Multispecialty Care - [facility] 3 [facility], [address] [place] [phone] Arpita France APNP [address] [place] [address] RE: Question Social History Tobacco Use Types Packs/Day Years Used Date Smoking Tobacco: Never Smokeless Tobacco: Never Alcohol Use Standard Drinks/Week Comments Not Currently 0 (1 standard drink = 0.6 oz pur e alcohol) PHQ-2 Answer Date Recorded PHQ-2 Score 0 09/19/2019 Comments No Sex and Gender Information Value Date Recorded Sex Assigned at Female 03/19/2024 9:04 AM MIRROR FINISHING MACHINE OPERATOR Legal Sex Female 2:39 PM CDT Gender Identity Not on file Sexual Orientation Not on file COVID-19 Exposure Response Date Recorded In the last month, have you been in contact with someone who was confirmed or suspected to have Coronavirus / COVID-19? No / Unsure 03/13/2020 7:38 AM MIRROR FINISHING MACHINE OPERATOR documented as of this encounter Plan of Treatment Not on file documented as of this encounter Visit Diagnoses Not on filedocumented in this encounter Additional Health Concerns Infection Onset Date Last Indicated Resolved Time COVID-19 Rule Out 06/23/2021 06/23/2021 06/23/2021 9:50 AM CDT COVID-19 Rule Out 07/13/2022 07/13/2022 07/13/2022 12:20 PM CDT Assessment Noted Time PHQ-9 Depression Total Score: 10 019 9:47 AM MIRROR FINISHING MACHINE OPERATOR documented as of this encounter Care Teams Housing And Residence Life Director Relationship Specialty Start Date End Date Olivia Roman DO [address] [place] [address] PCP - General FAMILY PRACTICE 11/22/19 documented as of this encounter
--- OUTSIDE RECORDS SUMMARY | 2024-11-25 00:36 | XMS_ITS | Encounter Summary ---
Author Organization [facility] Address [address] [place] [address] Care Team Providers Care Exchange Engineer Name Role Phone Olivia Roman DO Primary Care Provider [phone] Encounter Details Date Type Department Care Team (Late st Contact Info) Description 09/16/2024 Layer 4 Communicationst Message Enc [facility] Medical Group Family Medicine - [place] [address] [facility], [address] [place] [address] Olivia Roman DO [address] [place] [address] Iron infusion Social History Tobacco Use Types Packs/Day Years Used Date Smoking Tobacco: Never Passive Smoke Exposure: Never Smokeless Tobacco: Never Alcohol Use Standard Drinks/Week Comments Not Currently 0 (1 standard drink = 0.6 oz pur e alcohol) PHQ-2 Answer Date Recorded Patient Health Questionnaire-2 Score 0 05/28/2024 Comments No Sex and Gender Information Value Date Recorded Sex Assigned at Female 03/19/2024 9:04 AM BRICK DROPPER Legal Sex Female 2:39 PM CDT Gender Identity Not on file Sexual Orientation Not on file documented as of this encounter Plan of Treatment Not on file documented as of this encounter Visit Diagnoses Not on filedocumented in this encounter Additional Health Concerns Assessment Noted Time PHQ-9 Depression Total Score: 0 05/29/19 25 2:17 PM CDT documented as of this encounter Care Teams Exchange Engineer Relationship Specialty Start Date End Date Olivia Roman DO [address] [place] [address] PCP - General FAMILY PRACTICE 11/22/19 documented as of this encounter
--- OUTSIDE RECORDS SUMMARY | 2024-11-25 00:36 | XMS_ITS | Encounter Summary ---
Author Organization [facility] Address [address] [place] [address] Care Team Providers Care Associate Professor Of Counseling Name Role Phone Olivia Roman DO Primary Care Provider [phone] Encounter Details Date Type Department Care Team (Late st Contact Info) Description 09/29/2020 FirstString Message Enc [facility] Medical Group Family Medicine - [place] [address] [facility], [address] [place] [address] Olivia Roman DO [address] [place] [address] RE: Test Results Social History Tobacco Use Types Packs/Day Years Used Date Smoking Tobacco: Never Smokeless Tobacco: Never Alcohol Use Standard Drinks/Week Comments Not Currently 0 (1 standard drink = 0.6 oz pur e alcohol) PHQ-2 Answer Date Recorded PHQ-2 Score - If the patient scores above 3, please move on to questions 3-9 0 08/26/2020 Comments No Sex and Gender Information Value Date Recorded Sex Assigned at Female 03/19/2024 9:04 AM CORPORATE TRAVEL COUNSELOR Legal Sex Female 2:39 PM CDT Gender Identity Not on file Sexual Orientation Not on file COVID-19 Exposure Response Date Recorded In the last month, have you been in contact with someone who was confirmed or suspected to have Coronavirus / COVID-19? No / Unsure 09/30/2020 8:03 AM CDT documented as of this encounter Plan of Treatment Not on file documented as of this encounter Visit Diagnoses Not on filedocumented in this encounter Additional Health Concerns Infection Onset Date Last Indicated Resolved Time COVID-19 Rule Out 06/23/2021 06/23/2021 06/23/2021 9:50 AM CDT COVID-19 Rule Out 07/13/2022 07/13/2022 07/13/2022 12:20 PM CDT Assessment Noted Time PHQ-9 Depression Total Score: 4 08/27/19 21 11:32 AM CDT documented as of this encounter Care Teams Associate Professor Of Counseling Relationship Specialty Start Date End Date Olivia Roman DO [address] [place] [address] PCP - General FAMILY PRACTICE 11/22/19 documented as of this encounter
--- OUTSIDE RECORDS SUMMARY | 2024-11-25 00:36 | XMS_ITS | Clinical Summary ---
Author Organization [facility] Address [address], [facility] [address] [place] [address] Phone Care Team Providers Care Amortization Clerk Name Role Phone Olivia Roman DO Primary Care Provider [phone] Ricci Ordonez DO Unavailable [phone] Allergies Active Allergy Reactions Criticality Noted Date Comments Cat Dander Itching,Hives,Other (see Comments) Low 09/18/2019 Dog Epithelium (Canis Lupus Familiaris) Other (see Comments),Itching Low 09/18/2019 Dust Mite Extract Itching Low 09/18/2019 Ferric Carboxymaltose Hives 06/06/2022 Medications losartan (COZAAR) 25 MG Tablet Take 25 mg by mouth daily. 06/08/2020 Active aMILoride (MIDAMOR) 5 MG Tablet Take 5 mg by mouth daily. 04/15/2020 Active potassium citrate (UROCIT K) 10 MEQ (1080 MG) Tablet Controlled Release Take 20 mEq by mouth 2 times daily. 09/16/2024 Active cholecalciferol (D2000 Ultra Strength) 2000 UNIT Capsule Take 2,000 Units by mouth. Active Active Problems No known active problems Encounters Date Type Department Care Team Description 11/11/2024 12:15 PM CDT Lab [facility] [address] [address] Lab, Cc [place] Iron deficiency anemia, unspecified iron deficiency anemia type 11/11/2024 11:15 AM CDT Office Visit [facility] [address] [phone] Aydee Piper, HR RECEPTIONIST, KILNMAN Iron deficiency anemia, unspecified iron deficiency anemia type (Primary Dx) 11/11/2024 Travel 09/30/2024 11:20 AM CDT Lab [facility] [address] [phone] Lab, [facility] Iron deficiency anemia, unspecified iron deficiency anemia type 09/30/2024 11:00 AM CDT Office Visit [facility] [address] [phone] Ricci Ordonez, DO Iron deficiency anemia, unspecified iron deficiency anemia type (Primary Dx) 09/30/2024 Travel from Last 3 Months Family History Relation Name Status Comments Child 1 Alive Child 2 Alive Child 3 Alive Father Alive Mother Alive Social History Tobacco Use Types Packs/Day Years Used Date Smoking Tobacco: Never Smokeless Tobacco: Never Tobacco Cessation:Counseling Given: Not Answered Alcohol Use Standard Drinks/Week Comments Yes 3 (1 standard drink = 0.6 oz pur e alcohol) per year Comments Unknown Sex and Gender Information Value Date Recorded Sex Assigned at Not on file Legal Sex Female 8:57 AM CDT Gender Identity Not on file Sexual Orientation Not on file Last Filed Vital Signs Vital Sign Reading Time Taken Comments Blood Pressure 120/76 11/11/2024 11:50 AM CDT Pulse 74 11/11/2024 11:50 AM CDT Temperature 36.7 C (98 F) 11/11/2024 11:50 AM CDT Respiratory Rate 18 11/11/2024 11:5 0 AM CDT Oxygen Saturation 99% 11/11/2024 11: 50 AM CDT Inhaled Oxygen Concentration - - Weight 65.6 kg (144 lb 11.2 oz) 025 11:50 AM CDT Height 157.5 cm (5' 2) 11/11/2024 11:5 0 AM CDT Body Mass Index 26.47 11/11/2024 11:50 AM CDT Plan of Treatment Upcoming Encounters Date Type Department Care Team (Late st Contact Info) Description 02/10/2025 11:00 AM HADOOP DEVELOPER Lab [facility] [address] [address] Lab, Cc [facility] 02/10/2025 11:15 AM HADOOP DEVELOPER Office Visit [facility] [place] [address] [place] [address] Ricci Ordonez, [address] [place] [address] Health Maintenance Due Date Last Done Comments Hepatitis B Immunization (1 of 3 - 19+ 3-dose series) 2000 Pap Smear 2002 Human Papillomavirus (HPV) Immunization (1 - 3-dose SCDM series) 2008 Cervical Cancer Screening (CCS) 12/22/2011 HPV/Cotest 12/22/2011 Influenza Immunization (#1) 11/04/202412/04, 11/25/2022, 12/15/2021, Additional history exists SARS-COV-2 Immunization ( season) 2024 01/29/2021, 05/12/2020 Mammogram 10/29/2025 10/29/2024, 10/05, 07/17/2023, Additional history exists Respiratory Syncytial Virus (RSV) Immunization (Adult) (1 - 1-dose 75+ series) 2056 TdaP Immunization Completed 01/07/2014, 07/28/2009 Hepatitis C Virus (HCV) Screening Completed 11/03/2023 Discussion re Starting/Frequency of Mammograms Completed 10/29/2024, 07/17/2023, 05/20/2022 Meningococcal Immunization (ACWY) Aged Out No longer eligible based on patient's age to complete this topic Pneumococcal Immunization Combined Aged Out No longer eligible based on patient's age to complete this topic Rotavirus Immunization Aged Out No lo nger eligible based on patient's age to complete this topic Procedures Procedure Name Priority Date/Time Associated Diagnosis Comments CBC WITH AUTO DIFF OH Routine 11/11/2024 12:11 PM CDT IRON W/ IRON BINDING CAPACITY OH Routine 11/11/2024 12:11 PM CDT Iron deficiency anemia, unspecified iron deficiency anemia type FERRITIN Routine 11/11/2024 12:11 PM CDT Iron deficiency anemia, unspecified iron deficiency anemia type COMPLETE BLOOD COUNT (CBC) WITH DIFF Routine 09/30/2024 11:28 AM CDT Iron deficiency anemia, unspecified iron deficiency anemia type FERRITIN Routine 09/30/2024 11:28 AM CDT Iron deficiency anemia, unspecified iron deficiency anemia type CMP (COMPREHENSIVE METABOLIC PANEL) Routine 09/30/2024 11:28 AM CDT Iron deficiency anemia, unspecified iron deficiency anemia type IRON W/ IRON BINDING CAPACITY OH Routine 09/30/2024 11:28 AM CDT Iron deficiency anemia, unspecified iron deficiency anemia type VITAMIN B12 Routine 09/30/2024 11:28 AM CDT Iron deficiency anemia, unspecified iron deficiency anemia type FOLIC ACID (FOLATE) Routine 09/30/2024 1 1:28 AM CDT Iron deficiency anemia, unspecified iron deficiency anemia type from Last 3 Months Results * (ABNORMAL) IRON W/ IRON BINDING CAPACITY OH (11/11/2024 12:11 PM CDT) Only the most recent of2 resultswithin the time period is included. IRON 68 50 - 212 ug/dL [facility] UIBC 170 155 - 355 ug/dL [facility] COMMUNICATION [facility]ORD[facility] TIBC 238(L) 261 - 478 ug/dl [facility] % Saturation 29 20 - 50 % [facility] COMMUNICATION [facility] 11/11/2024 12:1 1 PM CDT Narrative [facility] COMM[facility]ICATION [facility] - 11/11/2024 12:50 PM CDT Release to patient->Immediate us Aydee Piper HR RECEPTIONIST, KILNMAN LAB SEND OUTS Final Result [facility] [address] [place] [address], * CBC WITH AUTO DIFF [place] (11/11/2024 12:11 PM CDT) WBC 5.5 4.0 - 10.0 10*3/uL [facility] HGB 14.1 11.2 - 15.7 g/dL [facility] COMMUNICATION COORD[facility] HCT 42.1 34.1 - 44.9 % [facility] COMMUNICATION COORD[facility] PLT 294 163 - 369 10*3/uL [facility] COMM[facility]ICATION CO[facility] MPV 9.5 9.4 - 12.4 fL [facility] COMMUNICATION COORD[facility] RBC 4.55 3.93 - 5.22 10*6/uL [facility] COMMUNICATION COORD[facility] MCV 93 79 - 95 fL [facility] MCH 31.0 25.6 - 32.2 pg [facility] COMMUNICATION COORD[facility] MCHC 33.5 32.2 - 36.5 g/dL [facility] COMMUNICATION COORD[facility] RDW 12.6 11.6 - 14.4 % [facility] COMMUNICATION COORD[facility] Neutrophils % 64.4 36.0 - 66.0 % [facility] COMMUNICATION COORD[facility] Lymphocytes % 24.5 19.0 - 40.0 % [facility] COMMUNICATION CO[facility] Monocytes % 8.7 4.1 - 12.1 % [facility] COMMUNICATION COORD[facility] Eosinophils % 1.3 0.0 - 3.5 % [facility] COMMUNICATION COORD[facility] Basophils % 0.7 0.0 - 1.0 % [facility] COMMUNICATION COORD[facility] Absolute Neutrophils 3.5 1.4 - 6.6 10*3/uL [facility]ICATION CO[facility] Absolute Lymphocytes 1.4 0.8 - 4.0 10*3/uL [facility]ICATION CO[facility] Absolute Monocytes 0.5 0.2 - 1.2 10*3/uL [facility] Absolute Eosinophils 0.1 0.0 - 0.4 10*3/uL [facility]ICATION CO[facility] Absolute Basophils 0.0 0.0 - 0.1 10*3/uL [facility] 11/11/2024 12:1 1 PM CDT Aydee Piper APRN, CNP LAB SEND OUTS Final Result Performing Organization Address [facility] Co de Phone Number [facility] COMMUNICATION CO[facility] [address] [place] [address], * FERRITIN (11/11/2024 12:11 PM CDT) Only the most recent of2 resultswithin the time period is included. Ferritin 148 11 - 307 ng/mL [facility] CO[facility] Blood 11/11/2024 12:1 1 PM CDT [facility] COMMUNICATION COORD[facility] - 11/12/2024 3:48 PM CDT Release to patient->Immediate Aydee Piper APRN, CNP CHEMISTRY ORDERABLES Final Result Performing Organization Address [facility] Co de Phone Number [facility] COMMUNICATION CO[facility] [place] [address], * VITAMIN B12 (09/30/2024 11:28 AM CDT) Vitamin B12 260 180 - 914 pg/mL [facility] Blood 09/30/2024 11:2 8 AM CDT [facility] - 10/01/2024 2:06 PM CDT Release to patient->Immediate Ricci Ordonez DO CHEMISTRY ORDERABLES Final Res ult Performing Organization Address City/[facility]/ZIP Co de Phone Number [facility] COMMUNICATION CO[facility] [place] [address], * FOLIC ACID (FOLATE) (09/30/2024 11:28 AM CDT) Folate 16.44 >=5.90 ng/mL [facility] Blood 09/30/2024 11:2 8 AM CDT [facility] COMMUNICATION CO[facility] - 10/01/2024 2:06 PM CDT Release to patient->Immediate IS THE PATIENT REQUIRED TO BE FASTING FOR 12 HOURS?->No Ricci Ordonez DO CHEMISTRY ORDERABLES Final Res ult [facility]ICATION CO[facility] [place] [address], * (ABNORMAL) CMP (COMPREHENSIVE METABOLIC PANEL) (09/30/2024 11:28 AM CDT) Glucose 96 70 - 105 mg/dL [facility] [employer] [facility] Blood Urea Nitrogen 12 7 - 25 mg/dL [facility] Creatinine 0.6 0.6 - 1.2 mg/dL [facility] Sodium 135(L) 136 - 145 mEq/L [facility] Potassium 4.7 3.5 - 5.1 mEq/L [facility] Chloride 101 98 - 107 mEq/L [facility] Bicarbonate 28 21 - 31 mEq/L [facility] Total Bilirubin 0.5 0.3 - 1.0 mg/dL [facility] Alk. Phosphatase 40 34 - 104 U/L [facility] Aspartate Aminotransferase 16 13 - 39 U/L [facility] Alanine Aminotransferase 13 7 - 52 U/L [facility] Total Protein 7.1 6.4 - 8.9 g/dL [facility] Albumin 4.6 3.5 - 5.7 g/dL [facility] Calcium 9.8 8.6 - 10.3 mg/dL [facility] Anion Gap 10.7 7.0 - 15.0 mEq/L [facility] Globulin 2.5 2.0 - 3.5 g/dL [facility] EGFR 114 >60 ml/min/1. 73m2 [facility] [employer] [facility] COMMUNICATION COORD[facility] Comment: This eGFR is calculated using 2020 CKD-EPI Creatinine equation without race modifier based on the NKF-ASN task force recommendations Equation: hGZU=005*min(SCr/k,1)a*max(SCr/k,1)-1.200*0.9938Age*1.012 (if female), where SCr is serum creatinine, k is 0.7 for females and 0.9 for males, and a is -0.241 for females and -0.302 for males Blood 09/30/2024 11:2 8 AM CDT Narrative [facility] - 09/30/2024 12:29 PM CDT Release to patient->Immediate IS THE PATIENT REQUIRED TO BE FASTING FOR 8 HOURS?->No us Ricci Ordonez DO CHEMISTRY ORDERABLES Final Res ult [facility] CO[facility] [place] [address], * COMPLETE BLOOD COUNT (CBC) WITH DIFF (09/30/2024 11:28 AM CDT) WBC 5.1 4.0 - 10.0 10*3/uL [facility] HGB 13.4 11.2 - 15.7 g/dL [employer] [facility] [employer] HCT 40.4 34.1 - 44.9 % [facility] COMMUNICATION COORD[facility] PLT 260 163 - 369 10*3/uL [facility] COMMUNICATION COORD[facility] MPV 9.5 9.4 - 12.4 fL [facility] COMMUNICATION COORD[facility] RBC 4.38 3.93 - 5.22 10*6/uL [facility] MCV 92 79 - 95 fL [facility] MCH 30.6 25.6 - 32.2 pg [facility] COMMUNICATION CO[facility] MCHC 33.2 32.2 - 36.5 g/dL [facility]UNICATION COORD[facility] RDW 12.2 11.6 - 14.4 % [facility] COMMUNICATION COORD[facility] Absolute Neutrophil Count 3,289 cells/uL [facility] Absolute Seg Count 3,289 1,440 - 6,600 cells/uL [facility] COMMUNICATION CO[facility] Absolute Lymph Count 1,063 760 - 4,000 cells/uL [facility] Absolute Collin Count 607 160 - 1,200 cells/uL [facility] Absolute Eos Count 101 0 - 300 cells/uL [facility] Segmented Neutrophils 65 36 - 66 % [facility]ER COMMUNICATION COORDINATOR OF [facility] Lymphocytes 21 19 - 40 % [facility] Monocytes 12 4 - 12 % CANCER [facility] Eosinophils 2 0 - 3 % [facility] WBC Estimate Normal [facility] Platelet Estimate Normal [facility] COMMUNICATION CO[facility] RBC Morphology Normal CANCE R COMMUNICATION COORD[facility] Blood 09/30/2024 11:2 8 AM CDT Narrative [facility] COMMUNICATION COORD[facility] - 09/30/2024 3:09 PM CDT Release to patient->Immediate us Ricci Ordonez DO HEMATOLOGY ORDERABLES Final Re sult [facility] COMMUNICATION CO[facility] [place] [address], [place] [phone] from Last 3 Months Insurance [facility] CLAIMS Care Teams Amortization Clerk Relationship Specialty Start Date End Date Olivia Roman DO [address] [place] [address] PCP - General Family Medicine 09/13/24 Ricci Ordonez DO [address] [place] [address] Consulting Physician Oncology 09/13/24
--- OUTSIDE RECORDS SUMMARY | 2024-11-25 00:36 | XMS_ITS | Encounter Summary ---
Author Organization [facility] Address [address] [place] [address] Care Team Providers Care Repairer Veneer Sheet Name Role Phone Olivia Roman DO Primary Care Provider [phone] Encounter Details Date Type Department Care Team (Latest Contact Info) Description 06/16/2022 My Ad Box Message Enc [facility] Medical Group Multispecialty Care - [facility] 3 [facility], [address] [address] Jackson Sal MD 3 [facility], [address] [address] Potassium citrate Social History Tobacco Use Types Packs/Day Years Used Date Smoking Tobacco: Never Passive Smoke Exposure: Never Smokeless Tobacco: Never Alcohol Use Standard Drinks/Week Comments Not Currently 0 (1 standard drink = 0.6 oz pur e alcohol) PHQ-2 Answer Date Recorded Patient Health Questionnaire-2 Score 0 06/13/2022 Comments No Sex and Gender Information Value Date Recorded Sex Assigned at Female 03/19/2024 9:04 AM GREENS KEEPER Legal Sex Female 2:39 PM CDT Gender Identity Not on file Sexual Orientation Not on file COVID-19 Exposure Response Date Recorded In the last 10 days, have yo u been in contact with someone who was confirmed or suspected to have Coronavirus/COVID-19? No / Unsure 06/13/2022 10:02 AM CDT documented as of this encounter [...] documented as of this encounter Care Teams Repairer Veneer Sheet Relationship Specialty Start Date End Date Olivia Roman DO [facility] [place] [address] PCP - General FAMILY PRACTICE 11/22/19 documented as of this encounter
--- OUTSIDE RECORDS SUMMARY | 2024-11-25 00:36 | XMS_ITS | Encounter Summary ---
Author Organization [facility] Address [address] [place] [address] Care Team Providers Care Core Sucker Name Role Phone Olivia Roman DO Primary Care Provider [phone] Encounter Details Date Type Department Care Team (Late st Contact Info) Description 12/20/2023 [email or web address] Message Enc [facility] Medical Group Family Medicine - [place] [address], [address] [place] [address] Olivia Roman DO [address] [place] [address] lab Social History Tobacco Use Types Packs/Day Years Used Date Smoking Tobacco: Never Passive Smoke Exposure: Never Smokeless Tobacco: Never Alcohol Use Standard Drinks/Week Comments Not Currently 0 (1 standard drink = 0.6 oz pur e alcohol) PHQ-2 Answer Date Recorded Patient Health Questionnaire-2 Score 0 10/30/2023 Comments No Sex and Gender Information Value Date Recorded Sex Assigned at Female 03/19/2024 9:04 AM PUPIL PERSONNEL SERVICES DIRECTOR Legal Sex Female 2:39 PM CDT Gender Identity Not on file Sexual Orientation Not on file documented as of this encounter Plan of Treatment Not on file documented as of this encounter Visit Diagnoses Not on filedocumented in this encounter Additional Health Concerns Assessment Noted Time PHQ-9 Depression Total Score: 0 10/30/19 24 2:12 PM CDT documented as of this encounter Care Teams Core Sucker Relationship Specialty Start Date End Date Olivia Roman DO [facility] [place] [address] PCP - General FAMILY PRACTICE 11/22/19 documented as of this encounter
--- OUTSIDE RECORDS SUMMARY | 2024-11-25 00:36 | XMS_ITS | Encounter Summary ---
Author Organization [facility] Address [address] [place] [address] Care Team Providers Care Doffer Name Role Phone Olivia Roman DO Primary Care Provider [phone] Encounter Details Date Type Department Care Team (Late st Contact Info) Description 02/16/2021 [employer] Message Enc [facility] Medical Group Family Medicine - [place] [address] [facility], [address] [place] [address] Olivia Roman DO [address] [place] [address] UTI Social History Tobacco Use Types Packs/Day Years Used Date Smoking Tobacco: Never Smokeless Tobacco: Never Alcohol Use Standard Drinks/Week Comments Not Currently 0 (1 standard drink = 0.6 oz pur e alcohol) PHQ-2 Answer Date Recorded PHQ-2 Score - If the patient scores above 3, please move on to questions 3-9 0 11/10/2020 Comments No Sex and Gender Information Value Date Recorded Sex Assigned at Female 03/19/2024 9:04 AM EMBOSSING 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 No / Unsure 02/11/2021 3:40 PM EMBOSSING CLERK documented as of this encounter Progress Notes * Chyna Hughes MA - 02/16/2021 7:46 AM CST APPT MADE SSING CLERK * Olivia Roman DO - 02/16/2021 7:06 AM CST Please provide an am appt for uti today SSING CLERK documented in this encounter Plan of Treatment Not on file documented as of this encounter Visit Diagnoses Not on filedocumented in this encounter Additional Health Concerns Infection Onset Date Last Indicated Resolved Time COVID-19 Rule Out 06/23/2021 06/23/2021 06/23/2021 9:50 AM CDT COVID-19 Rule Out 07/13/2022 07/13/2022 07/13/2022 12:20 PM CDT Assessment Noted Time PHQ-9 Depression Total Score: 2 11/11/19 21 11:15 AM CDT documented as of this encounter Care Teams Doffer Relationship Specialty Start Date End Date Olivia Roman DO [address] [place] [address] PCP - General FAMILY PRACTICE 11/22/19 documented as of this encounter
--- OUTSIDE RECORDS SUMMARY | 2024-11-25 00:36 | XMS_ITS | Encounter Summary ---
Author Organization [facility] Address [facility] [place] [address] Care Team Providers Care Grain Roaster Name Role Phone Olivia Roman DO Primary Care Provider [phone] Encounter Details Date Type Department Care Team (Late st Contact Info) Description 05/30/2022 ClickTale Message Enc [facility] Medical [facility] Family Medicine - [place] [address], [address] [place] [address] Olivia Roman DO [address] [place], [place] [id number] Urology / Gynocology Social History Tobacco Use Types Packs/Day Years Used Date Smoking Tobacco: Never Smokeless Tobacco: Never Alcohol Use Standard Drinks/Week Comments Not Currently 0 (1 standard drink = 0.6 oz pur e alcohol) PHQ-2 Answer Date Recorded Patient Health Questionnaire-2 Score 0 05/10/2022 Comments No Sex and Gender Information Value Date Recorded Sex Assigned at Female 03/19/2024 9:04 AM WALLPAPER INSPECTOR Legal Sex Female 2:39 PM CDT Gender Identity Not on file Sexual Orientation Not on file COVID-19 Exposure Response Date Recorded In the last 10 days, have yo u been in contact with someone who was confirmed or suspected to have Coronavirus/COVID-19? No / Unsure 06/02/2022 11:02 AM CDT documented as of this encounter [...] documented as of this encounter Care Teams Grain Roaster Relationship Specialty Start Date End Date Olivia Roman DO [address] [place], [place] [phone] PCP - General FAMILY PRACTICE 11/22/19 documented as of this encounter
--- OUTSIDE RECORDS SUMMARY | 2024-11-25 00:36 | XMS_ITS | Encounter Summary ---
Author Organization [facility] Address [address] [place] [address] Care Team Providers Care Track Manager Name Role Phone Olivia Roman DO Primary Care Provider [phone] Encounter Details Date Type Department Care Team (Late st Contact Info) Description 06/23/2021 Aquaporin Message Enc [facility] Medical Group Family Medicine - [place] [address] [facility], [address] [place] [address] Olivia Roman DO [address] [place] [address] chest xray and kub Social History Tobacco Use Types Packs/Day Years Used Date Smoking Tobacco: Never Smokeless Tobacco: Never Alcohol Use Standard Drinks/Week Comments Not Currently 0 (1 standard drink = 0.6 oz pur e alcohol) PHQ-2 Answer Date Recorded PHQ-2 Score - If the patient scores above 3, please move on to questions 3-9 0 05/19/2021 Comments No Sex and Gender Information Value Date Recorded Sex Assigned at Female 03/19/2024 9:04 AM KRAFT MILL OPERATOR Legal Sex Female 2:39 PM CDT Gender Identity Not on file Sexual Orientation Not on file COVID-19 Exposure Response Date Recorded In the last 10 days, have yo u been in contact with someone who was confirmed or suspected to have Coronavirus/COVID-19? No / Unsure 06/23/2021 9:00 AM CDT documented as of this encounter [...] documented as of this encounter Care Teams Track Manager Relationship Specialty Start Date End Date Olivia Roman DO [address] [place] [address] PCP - General FAMILY PRACTICE 11/22/19 documented as of this encounter
--- OUTSIDE RECORDS SUMMARY | 2024-11-25 00:36 | XMS_ITS | Encounter Summary ---
Author Organization [facility] Address [address] [place] [address] Care Team Providers Care User Interface Artist Name Role Phone Olivia Roman DO Primary Care Provider [phone] Encounter Details Date Type Department Care Team (Late st Contact Info) Description 06/30/2020 [employer] Message Enc [facility] Medical Group Multispecialty Care - [facility] [address] [facility], [address] [place] [phone] Patsy Saucedo, APNP [address] [address] Question Social History Tobacco Use Types Packs/Day [...] Sex Assigned at Female 03/19/2024 9:04 AM MILK TREATER Legal Sex Female 2:39 PM CDT Gender Identity Not on file Sexual Orientation Not on file COVID-19 Exposure Response Date Recorded In the last month, have you been in contact with someone who was confirmed or suspected to have Coronavirus / COVID-19? No / Unsure 06/15/2020 3:07 PM CDT documented as of this encounter Progress Notes * Nolvia Liriano LPN - 06/30/2020 2:10 PM CDT Please advise if this patient can do a vv. thanks documented in this encounter Plan of Treatment Not on file documented as of this encounter Visit Diagnoses Not on filedocumented in this encounter Additional Health Concerns Infection Onset Date Last Indicated Resolved Time COVID-19 Rule Out 06/23/2021 06/23/2021 06/23/2021 9:50 AM CDT COVID-19 Rule Out 07/13/2022 07/13/2022 07/13/2022 12:20 PM CDT Assessment Noted Time PHQ-9 Depression Total Score: 10 019 9:47 AM MILK TREATER documented as of this encounter Care Teams User Interface Artist Relationship Specialty Start Date End Date Olivia Roman DO [address] [place] [id number] PCP - General FAMILY PRACTICE 11/22/19 documented as of this encounter
--- OUTSIDE RECORDS SUMMARY | 2024-11-25 00:36 | XMS_ITS | Encounter Summary ---
Author Organization [facility] Address [facility] [place] [address] Care Team Providers Care Product Safety Specialist Name Role Phone Olivia Roman DO Primary Care Provider [phone] Encounter Details Date Type Department Care Team (Late st Contact Info) Description 06/23/2021 DataFoxt Message Enc [facility] Medical Group Multispecialty Care - [facility] [address] [facility], [address] [phone] Jackson Sal MD 3 [facility], [address] [phone] Litholink order Social History Tobacco Use Types Packs/Day Years [...] Sex Assigned at Female 03/19/2024 9:04 AM CRYSTAL SYRUP MAKER Legal Sex Female 2:39 PM CDT Gender [...] documented as of this encounter Care Teams Product Safety Specialist Relationship Specialty Start Date End Date Olivia Roman DO [address] [place] [address] PCP - General FAMILY PRACTICE 11/22/19 documented as of this encounter
--- OUTSIDE RECORDS SUMMARY | 2024-11-25 00:36 | XMS_ITS | Encounter Summary ---
Author Organization [facility] Address [address] [place] [address] Care Team Providers Care Senior Solutions Architect Name Role Phone Olivia Roman DO Primary Care Provider [phone] Encounter Details Date Type Department Care Team (Late st Contact Info) Description 10/28/2020 VOLITIONRX Message Enc [facility] Medical Group Family Medicine - [place] [address] [facility], [address] [place] [address] Olivia Roman DO [address] [place] [address] RE:follow up Social History Tobacco Use Types Packs/Day Years [...] Sex Assigned at Female 03/19/2024 9:04 AM 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 No / Unsure 10/14/2020 12:16 PM CDT documented as of this encounter Progress Notes * Chyna Hughes MA - 10/28/2020 4:40 PM CDT mycharted patient, dr metcalf response * Olivia Roman DO - 10/28/2020 2:49 PM CDT I would recommend to ferritin, cbc in 12/2020 as lab work already ordered. documented in this encounter Plan of Treatment Not on file documented as of this encounter Visit Diagnoses Diagnosis Iron deficiency anemia, unspecified iron deficiency anemia type- Primary documented in this encounter Additional Health Concerns Infection Onset Date Last Indicated Resolved Time COVID-19 Rule Out 06/23/2021 06/23/2021 06/23/2021 9:50 AM CDT COVID-19 Rule Out 07/13/2022 07/13/2022 07/13/2022 12:20 PM CDT Assessment Noted Time PHQ-9 Depression Total Score: 4 08/27/19 21 11:32 AM CDT documented as of this encounter Care Teams Senior Solutions Architect Relationship Specialty Start Date End Date Olivia Roman DO [address] [place] [address] PCP - General FAMILY PRACTICE 11/22/19 documented as of this encounter
--- OUTSIDE RECORDS SUMMARY | 2024-11-25 00:36 | XMS_ITS | Encounter Summary ---
Author Organization [facility] Address [address] [place] [address] Care Team Providers Care Manager Of Exhibitions And Collections Name Role Phone Olivia Roman DO Primary Care Provider [phone] Encounter Details Date Type Department Care Team (Late st Contact Info) Description 10/30/2023 [employer] Message Enc [facility] Medical Group Family Medicine - [place] [address] [facility], [address] [place] [address] Olivia Roman DO [address] [place] [address] CMP Social History Tobacco Use Types Packs/Day Years Used Date Smoking Tobacco: Never Passive Smoke Exposure: Never Smokeless Tobacco: Never Alcohol Use Standard Drinks/Week Comments Not Currently 0 (1 standard drink = 0.6 oz pur e alcohol) PHQ-2 Answer Date Recorded Patient Health Questionnaire-2 Score 0 10/30/2023 Comments No Sex and Gender Information Value Date Recorded Sex Assigned at Female 03/19/2024 9:04 AM TRANSLATOR DEAF Legal Sex Female 2:39 PM CDT Gender Identity Not on file Sexual Orientation Not on file documented as of this encounter Functional Status * Over the past 2 weeks, how often have you been bothered by any of the following problems? Question Answer Date of Assessment Author Status Little interest or pleasure in doing things Not at all 10/30/2023 2:12 PM CDT Mae Thomas MA Ac tive Feeling down, depressed, or hopeless Not at all 10/30/2023 2:12 PM CDT Mae Thomas MA Active Patient Health Questionnaire-2 Score 0 10/30/2023 2:12 PM Mae Barrios MA Active * Question Answer Date of Assessment Author Status Trouble falling or staying asleep, or sleeping too much Not at all 10/30/2023 2:12 PM Mae Barrios MA Active Feeling tired or having little energy Not at all 10/30/2023 2:12 PM Mae Barrios MA Active Poor appetite or overeating Not at all 10/30/2023 2:12 PM Mae Barrios MA Active Feeling bad about yourself - or that you are a failure or have let yourself or your family down Not at all 10/30/2023 2:12 PM Mae Barrios MA Active Trouble concentrating on things, such as reading the newspaper or watching television Not at all 10/30/2023 2:12 PM Mae Barrios MA Active Moving or speaking so slowly that other people could have noticed? Or the opposite - being so fidgety or restless that you have been moving around a lot more than usual. Not at all 10/30/2023 2:12 PM Mae Barrios MA Active Thoughts that you would be better off or hurting yourself in some way Not at all 10/30/2023 2:12 PM Mae Barrios MA Active Patient Health Questionnaire-9 Score 0 10/30/2023 2:12 PM Shamir Barrios MA Active * If you checked off any problems on this questionnaire so far, Question Answer Date of Assessment Author Status How difficult have these problems made it for you to do your work, take care of things at home, or get along with other people? Not difficult at all 10/30/2023 2:12 PM Mae Barrios MA Active * Over the last 2 weeks, how often have you been bothered by any of the following problems? Question Answer Date of Assessment Author Status Feeling nervous, anxious, or on edge 0 10/30/2023 2:12 PM Mae Barrios MA Ac tive Not being able to stop or control worrying 0 10/30/2023 2:12 PM CDT Mae Thomas MA A ctive Worrying too much about different things 0 10/30/2023 2:12 PM CDT Mae Thomas MA A ctive Trouble relaxing 0 10/30/2023 2:12 PM CDT Mae Thomas MA Active Being so restless that it is hard to sit still 0 10/30/2023 2:12 PM CDT Mae Thomas MA Active Becoming easily annoyed or irritable 0 10/30/2023 2:12 PM CDT Mae Thomas MA Ac tive Feeling afraid as if something awful might happen 0 10/30/2023 2:12 PM CDT Mae Thomas MA Ac tive SALBADOR-7 Total Score 0 10/30/2023 2:12 PM CDT Mae Thomas MA Active documented as of this encounter Plan of Treatment Not on file documented as of this encounter Visit Diagnoses Not on filedocumented in this encounter Additional Health Concerns Assessment Noted Time PHQ-9 Depression Total Score: 0 10/30/19 24 2:12 PM CDT documented as of this encounter Care Teams Manager Of Exhibitions And Collections Relationship Specialty Start Date End Date Olivia Roman DO [address] [place] [address] PCP - General FAMILY PRACTICE 11/22/19 documented as of this encounter
--- OUTSIDE RECORDS SUMMARY | 2024-11-25 00:36 | XMS_ITS | Encounter Summary ---
Author Organization [facility] Address [address] [place] [address] Care Team Providers Care Wellness Guide Name Role Phone Olivia Roman DO Primary Care Provider [phone] Encounter Details Date Type Department Care Team (Late st Contact Info) Description 09/10/2024 Therapy Plan [facility] [place] [address] Olivia Roman DO [address] [place], [place] [phone] Social History Tobacco Use Types Packs/Day Years Used Date Smoking Tobacco: Never Passive Smoke Exposure: Never Smokeless Tobacco: Never Alcohol Use Standard Drinks/Week Comments Not Currently 0 (1 standard drink = 0.6 oz pur e alcohol) PHQ-2 Answer Date Recorded Patient Health Questionnaire-2 Score 0 05/28/2024 Comments No Sex and Gender Information Value Date Recorded Sex Assigned at Female 03/19/2024 9:04 AM EQUINE INTERN Legal Sex Female 2:39 PM CDT Gender Identity Not on file Sexual Orientation Not on file documented as of this encounter Plan of Treatment Scheduled Orders Name Type Priority Associated Diagnoses Orde r Schedule COMPREHENSIVE METABOLIC PANEL Lab Routine Iron deficiency anemia secondary to inadequate dietary iron intake Every 3 months for 4 Occurrences starting 09/10/2024 until 09/10/2025 documented as of this encounter Visit Diagnoses Diagnosis Iron deficiency anemia secondary to inadequate dietary iron intake- Primary Iron deficiency Iron deficiency anemia, unspecified Anemia, due to inadequate iron intake Iron deficiency anemia secondary to inadequate dietary iron intake documented in this encounter Additional Health Concerns Assessment Noted Time PHQ-9 Depression Total Score: 0 05/29/19 25 2:17 PM CDT documented as of this encounter Care Teams Wellness Guide Relationship Specialty Start Date End Date Olivia Roman DO [address] [place] [address] PCP - General FAMILY PRACTICE 11/22/19 documented as of this encounter
--- OUTSIDE RECORDS SUMMARY | 2024-11-25 00:36 | XMS_ITS | Encounter Summary ---
Author Organization [facility] Address [facility] [place] [address] Care Team Providers Care Manager House Name Role Phone Olivia Roman DO Primary Care Provider [phone] Encounter Details Date Type Department Care Team (Late st Contact Info) Description 04/01/2020 C[employer] Message Enc [facility] Medical Group Multispecialty Care - [facility] [address] [facility], [address] [place] [phone] Patsy Saucedo APNP [address] [address] RE: Question Social History Tobacco Use Types [...] Sex Assigned at Female 03/19/2024 9:04 AM 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 No / Unsure 04/02/2020 1:19 PM ASSISTANT MAINTENANCE MANAGER documented as of this encounter Progress Notes * WONG Caputo - 04/01/2020 12:25 PM CST If she starts having pain she should call us and yes, would consider flomax and pain medication. Ifshe would get pain and this was associated with fever, chills, intense nausea and vomiting would recommend the ER. STANT MAINTENANCE MANAGER * Ann Marie Yoo MA - 04/01/2020 12:06 PM CST Please advise. STANT MAINTENANCE MANAGER documented in this encounter Plan of Treatment Not on file documented as of this encounter Visit Diagnoses Not on filedocumented in this encounter Additional Health Concerns Infection Onset Date Last Indicated Resolved Time COVID-19 Rule Out 06/23/2021 06/23/2021 06/23/2021 9:50 AM CDT COVID-19 Rule Out 07/13/2022 07/13/2022 07/13/2022 12:20 PM CDT Assessment Noted Time PHQ-9 Depression Total Score: 10 019 9:47 AM ASSISTANT MAINTENANCE MANAGER documented as of this encounter Care Teams Manager House Relationship Specialty Start Date End Date Olivia Roman DO [address] [place] [address] PCP - General FAMILY PRACTICE 11/22/19 documented as of this encounter
--- OUTSIDE RECORDS SUMMARY | 2024-11-25 00:36 | XMS_ITS | Encounter Summary ---
Author Organization [facility] Address [address] [place] [address] Care Team Providers Care Field Case Manager Name Role Phone Olivia Roman DO Primary Care Provider [phone] Encounter Details Date Type Department Care Team (Late st Contact Info) Description 12/08/2021 CRV Message Enc [facility] Medical Group Multispecialty Care - [address], [address] [place] [phone] Mycjerricat, [facility] Provider CYSTOSCOPY Social History Tobacco Use Types Packs/Day Years Used Date Smoking Tobacco: Never Smokeless Tobacco: Never Alcohol Use Standard Drinks/Week Comments Not Currently 0 (1 standard drink = 0.6 oz pur e alcohol) PHQ-2 Answer Date Recorded PHQ-2 Score - If the patient scores above 3, please move on to questions 3-9 0 12/03/2021 Comments No Sex and Gender Information Value Date Recorded Sex Assigned at Female 03/19/2024 9:04 AM 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 No / Unsure 12/03/2021 1:55 PM CDT documented as of this encounter [...] documented as of this encounter Care Teams Field Case Manager Relationship Specialty Start Date End Date Olivia Roman DO [address] [place] [address] PCP - General FAMILY PRACTICE 11/22/19 documented as of this encounter
--- OUTSIDE RECORDS SUMMARY | 2024-11-25 00:36 | XMS_ITS | Encounter Summary ---
Author Organization [facility] Address [address] [place] [address] Care Team Providers Care Furniture Reproducer Name Role Phone Olivia Roman DO Primary Care Provider [phone] Encounter Details Date Type Department Care Team (Late st Contact Info) Description 11/30/2023 ISH Message Enc [facility] Medical Group Family Medicine - [place] [address] [facility], [address] [place] [address] Olivia Roman DO [address] [place] [address] pap smear Social History Tobacco Use Types Packs/Day Years Used Date Smoking Tobacco: Never Passive Smoke Exposure: Never Smokeless Tobacco: Never Alcohol Use Standard Drinks/Week Comments Not Currently 0 (1 standard drink = 0.6 oz pur e alcohol) PHQ-2 Answer Date Recorded Patient Health Questionnaire-2 Score 0 10/30/2023 Comments No Sex and Gender Information Value Date Recorded Sex Assigned at Female 03/19/2024 9:04 AM 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
--- OUTSIDE RECORDS SUMMARY | 2024-11-25 00:36 | XMS_ITS | Encounter Summary ---
Author Organization [facility] Address [address] [place] [address] Care Team Providers Care Senior Climate Advisor Name Role Phone Olivia Roman DO Primary Care Provider [phone] Encounter Details Date Type Department Care Team (Late st Contact Info) Description 06/14/2023 Therapy Plan [facility] Infusion Services [place], [place] [phone] Olivia Roman DO [facility] [place], [place] [phone] Social History Tobacco Use Types Packs/Day Years Used Date Smoking Tobacco: Never Passive Smoke Exposure: Never Smokeless Tobacco: Never Alcohol Use Standard Drinks/Week Comments Not Currently 0 (1 standard drink = 0.6 oz pur e alcohol) PHQ-2 Answer Date Recorded Patient Health Questionnaire-2 Score 0 05/24/2023 Comments No Sex and Gender Information Value Date Recorded Sex Assigned at Female 03/19/2024 9:04 AM CYANIDE POT TENDER Legal Sex Female 2:39 PM CDT Gender Identity Not on file Sexual Orientation Not on file documented as of this encounter Plan of Treatment Not on file documented as of this encounter Visit Diagnoses Diagnosis Anemia, due to inadequate iron intake- Primary Iron deficiency anemia secondary to inadequate dietary iron intake Iron deficiency Iron deficiency anemia, unspecified documented in this encounter Additional Health Concerns Assessment Noted Time PHQ-9 Depression Total Score: 0 05/24/19 24 9:41 AM CDT documented as of this encounter Care Teams Senior Climate Advisor Relationship Specialty Start Date End Date Olivia Roman DO [address] [place] [address] PCP - General FAMILY PRACTICE 11/22/19 documented as of this encounter
--- OUTSIDE RECORDS SUMMARY | 2024-11-25 00:36 | XMS_ITS | Clinical Summary ---
Author Organization [facility] Address [address] [place] [address] Care Team Providers Care Social Media Editor Name Role Phone Olivia Roman DO Primary Care Provider Allergies Active Allergy Reactions Criticality Noted Date Comments Cat Dander Itching,Eye irritation,Sneezing Low 10/04 Dog Dander Itching,Eye irritation,Sneezing Low 09/03 Medications carboxymethylcel lulose (Refresh Plus) 0.5 % dropperette Administer 1 drop into affected eye(s) 2 (two) times a day 0 Active multivitamin capsule Take 1 capsule by mouth daily Active cholecalciferol (VITAMIN D-3) 2000 unit capsule Take 1 capsule (2,000 Units total) by mouth Active AMILoride (MIDAMOR) 5 mg tablet Take 1 tablet (5 mg total) by mouth daily 30 tablet 1 Active losartan (COZAAR) 25 mg tablet Take 1 tablet (25 mg total) by mouth daily 90 tablet 1 Active potassium citrate ER (UROCIT-K) 10 mEq (1,080 mg) CR tablet Take 2 mEq by mouth 2 (two) times a day Active Active Problems Problem Noted Date Diagnosed Date Papillary conjunctivitis 10/21/2019 Eczematous dermatitis of upper eyelids of both e yes 10/21/2019 Encounters Date Type Department Care Team Description 09/03/2024 1:00 PM CDT Office Visit [facility] Medicine [facility] Surgery [address] [place] [address] [address] [place] [address] Андрей Arana MD Hydronephrosis, unspecified hydronephrosis type 08/29/2024 12:30 PM CDT Lab [facility] Lab [address] [place] [address] Nephrolithiasis 08/29/2024 11:30 AM CDT Office Visit [facility] Nephrology at [place] [address] [facility] [address] [place] [address] Emily Pascal MD Nephrolithiasis (Primary Dx); Bilateral hydronephrosis; Urinary tract infection with hematuria, site unspecified 08/28/2024 Orders Only [facility] Nephrology at [address] [place] [address] Fausto Nugent MD 08/27/2024 7:03 AM CDT - 08/27/2024 11:59 PM CDT Hospital Encounter [facility] [address] [place] [address] Kidney stones Discharge Disposition: Discharge to home or self care from Last 3 Months Surgical History Surgery Date Site/Laterality Comments KIDNEY STONE SURGERY 07/04/2017 - 08/03/2017 TONSILLECTOMY 03/06/1995 - 03/05/1996 Medical History Medical History Date Comments Hypertension Kidney stone Positive KRISSY (antinuclear antibody) Family History Medical History Relation Name Comments Hypertension Father Cancer Maternal Grandfather Diabetes Maternal Grandmother Cancer Mother's Sister Relation Name Status Comments Father Maternal Grandfather Maternal Grandmother Mother's Sister Social History Tobacco Use Types Packs/Day Years Used Date Smoking Tobacco: Never Smokeless Tobacco: Never Alcohol Use Standard Drinks/Week Comments Yes 0 (1 standard drink = 0.6 oz pur e alcohol) socially AUDIT-C Answer Date Recorded Q1: How often do you have a drink containing alc ohol? Never 08/29/2024 Average Number of Drinks Not on file 025 Frequency of Binge Drinking Not on file 08/05 Comments Unknown Sex and Gender Information Value Date Recorded Sex Assigned at Not on file Legal Sex Female 12:59 PM CDT Gender Identity Not on file Sexual Orientation Not on file Obstetrics History Last Filed Vital Signs Vital Sign Reading Time Taken Comments Blood Pressure 127/81 08/29/2024 11:41 AM CDT Pulse 60 08/29/2024 11:41 AM CDT Temperature 36.6 C (97.8 F) 08/29/2024 11:41 AM CDT Respiratory Rate - - Oxygen Saturation - - Inhaled Oxygen Concentration - - Weight 64 kg (141 lb) 09/03/2024 12:55 PM CDT Height 157.5 cm (5' 2) 09/03/2024 12:55 PM CDT Body Mass Index 25.79 09/03/2024 12:55 PM CDT Plan of Treatment Health Maintenance Due Date Last Done Comments Cervical Cancer Screening 1981 Depression Screening 1981 Hepatitis C Screening 1981 Varicella Vaccines (1 of 2 - 13+ 2-dose series) 1994 Hepatitis B Screening 12/22/1999 Regular Well Visit/Exam 18-64 12/22/1999 HPV Vaccines (1 - 3-dose SCDM series) 2008 DTaP/Tdap/Td Vaccine (3 - Td or Tdap) 01/08/2024 01/07/2014, 07/28/2009 Breast Cancer Screening-Mammogram 07/16/2024 07/17/2023, 07/17/2023, 05/20/2022 Covid-19 Vaccine (2 - season) 2024 01/29/2021 Influenza Vaccine (#1) 2024 , 11/25/2022, 12/15/2021, Additional history exists Pneumococcal vaccine <65 Aged Out No longer eligible based on patient's age to complete this topic Procedures Procedure Name Priority Date/Time Associated Diagnosis Comments URINALYSIS AND REFLEX TO MICROSCOPIC AND CULTURE Routine 08/29/2024 12:34 PM CDT Nephrolithiasis PROTEIN / CREATININE RATIO, RANDOM URINE Routine 08/28/2024 4:53 PM CDT URINALYSIS Routine 08/28/2024 4:[address] ABDOMEN PELVIS WO CONTRAST Schedule Routine, Read Routine (OP Routine) 08/27/2024 7:24 AM CDT Kidney stones from Last 3 Months Results * Urinalysis reflex to microscopic and culture Urine, clean voided (08/29/2024 12:34 PM CDT) Color, ur Straw Yellow Clarity, ur Clear Clear [facility] Specific gravity, ur 1.006 1.003 - 1.030 [facility] pH, urine 8.0 [facility] Comment: Interpretive Data U rine pH is affected by diet, medications, systemic acid-base disturbances, and renal tubular function. pH may affect urinary stone formation. For example, urine pH below 6.0 may help reduce the tendency for calcium phosphate stones and pH greater than 6.0 may reduce the tendency for uric acid stone formation. Source: [facility] Current Interpretive Data was last revised on 2017 Protein, ur ql Negative Negative [facility] Glucose, ur ql Negative Negative [facility] Ketones, ur Negative Negative [facility] Bilirubin, ur Negative Negative [facility] Blood, ur Negative Negative [facility] Urobilinogen, ur <2.0 <2.0 mg/dL [facility] Nitrite, ur Negative Negative [facility] Leukocyte esterase, ur Negative Negative [facility] UA reflex comment Reflex conditions for microscopic UA and culture not met. [facility] Urine, clean voided 08/29/2024 12:34 PM CDT 08/29/2024 12:47 PM CDT Result [facility] Emily Pascal MD LAB MICROBIOLOGY - GENERAL ORDERABLES Final Result Performing Organization Address [facility]/ZIP Co de Phone Number [place] [phone] [facility] Department [place] [address] * Protein / Creatinine Ratio, Random Urine (08/28/2024 4:53 PM CDT) Historical Provider LAB BLOOD ORDERABLES Brenda l Result EXTERNAL LAB * Urinalysis (08/28/2024 4:50 PM CDT) Urine Historical Provider LAB URINE ORDERABLES Brenda l Result EXTERNAL LAB * CT Abdomen Pelvis WO Contrast (08/27/2024 7:24 AM CDT) Anatomical Region Laterality Modality Body N/A Computed Tomogra phy 09/01/2024 3:35 PM CDT Narrative 09/01/2024 3:40 PM CDT EXAM DESCRIPTION: CT ABDOMEN PELVIS WO CONTRAST REASON FOR STUDY: kidney stones Per Pt had ultrasound done at outside imaging facility 3 weeks ago showing bilateral hydronephrosis with multiple kidney stones. TECHNIQUE: CT scan of the abdomen and pelvis performed without intravenous and without oral contrast using helical scanning technique. Reconstructed coronal and sagittal MPR images reviewed. All images stored on PACS. Automated exposure control was used as a dose optimization technique for this examination. COMPARISON: No prior CT. Prior ultrasound 12/11/2023. FINDINGS: The sensitivity for detection of visceral lesions is diminished without the use of intravenous contrast. LOWER CHEST: Limited view through the lung base demonstrates no infiltrate or effusion. LIVER: Normal appearance given limitations without IV contrast. GALLBLADDER: No stones or inflammatory change. BILE DUCTS: No intrahepatic or extrahepatic ductal dilatation. SPLEEN: Normal size. No focal lesions. PANCREAS: No identified cystic or solid masses. No significant calcifications. No adjacent inflammation or peripancreatic fluid collections. Pancreatic duct not dilated. ADRENALS: Normal. KIDNEYS/URINARY TRACT: The right kidney demonstrates small nonobstructing stones of the lower pole. These appear to abut 1 another. In total, this measures 9 x 3 x 8 mm. There is no hydronephrosis. No ureteral stone. The left kidney demonstrates several nonobstructing stones ranging in size from 1-3 mm. No hydronephrosis. No ureteral stone. Bladder is under filled. No calcifications or evidence of abnormality. GI: There is no acute inflammatory change of bowel. No obstruction. PERITONEUM: No free-fluid. No free air. No adenopathy by size criteria. RETROPERITONEUM: No mass or adenopathy. REPRODUCTIVE: 2.5 mm low-density lesion left adnexa adjacent to a 1.1 cm similar appearing focus. These may be abutting cysts or maybe a septated cyst. Routine ultrasound could be obtained in 10 weeks to ensure resolution. VASCULATURE: Atherosclerotic change abdominal aorta. No aneurysmal dilatation. MUSCULOSKELETAL: No suspicious lytic or blastic lesion. OTHER: No other abnormality. IMPRESSION: 1. There are small nonobstructing stones of the right kidney and left kidney as above. No hydronephrosis or ureteral stone. 2. 2.5 mm low-density lesion left adnexa adjacent to a 1.1 cm similar appearing focus. These may be abutting cysts or maybe a septated cyst. Routine ultrasound could be obtained in 10 weeks to ensure resolution. THIS IS AN ELECTRONICALLY VERIFIED FINAL REPORT 09/01/2024 3:40 PM - Electronically signed by Shiv Akins M.D. MJ: [email or web address] Report ID: [id number] Reading Location: [id number] Procedure Note Shiv Akins MD - 09/01/2024 EXAM DESCRIPTION: CT ABDOMEN PELVIS WO CONTRAST REASON FOR STUDY: kidney stones Per Pt had ultrasound done at outside imaging facility 3 weeks ago showing bilateral hydronephrosis with multiple kidney stones. TECHNIQUE: CT scan of the abdomen and pelvis performed without intravenousand without oral contrast using helical scanning technique. Reconstructed coronal and sagittal MPR images reviewed. All images stored on PACS.Automated exposure control was used as a dose optimization technique for this examination. COMPARISON: No prior CT. Prior ultrasound 12/11/2023. FINDINGS: The sensitivity for detection of visceral lesions is diminished without the use of intravenous contrast. LOWER CHEST: Limited view through the lung base demonstrates noinfiltrate or effusion. LIVER: Normal appearance given limitations without IV contrast. GALLBLADDER: No stones or inflammatory change. BILE DUCTS: No intrahepatic or extrahepatic ductal dilatation. SPLEEN: Normal size. No focal lesions. PANCREAS: No identified cystic or solid masses. No significant calcifications. No adjacent inflammation or peripancreatic fluidcollections. Pancreatic duct not dilated. ADRENALS: Normal. KIDNEYS/URINARY TRACT: The right kidney demonstrates small nonobstructing stones of the lowerpole. These appear to abut 1 another. In total, this measures 9 x 3 x 8 mm.There is no hydronephrosis. No ureteral stone. The left kidney demonstrates several nonobstructing stones ranging in size from 1-3 mm. No hydronephrosis. No ureteral stone. Bladder is under filled. No calcifications or evidence of abnormality. GI: There is no acute inflammatory change of bowel. No obstruction. PERITONEUM: No free-fluid. No free air. No adenopathy by sizecriteria. RETROPERITONEUM: No mass or adenopathy. REPRODUCTIVE: 2.5 mm low-density lesion left adnexa adjacent to a 1.1 cm similar appearing focus. These may be abutting cysts or maybe a septated cyst. Routine ultrasound could be obtained in 10 weeks to ensureresolution. VASCULATURE: Atherosclerotic change abdominal aorta. No aneurysmal dilatation. MUSCULOSKELETAL: No suspicious lytic or blastic lesion. OTHER: No other abnormality. IMPRESSION: 1. There are small nonobstructing stones of the right kidney and leftkidney as above. No hydronephrosis or ureteral stone. 2. 2.5 mm low-density lesion left adnexa adjacent to a 1.1 cm similar appearing focus. These may be abutting cysts or maybe a septated cyst.Routine ultrasound could be obtained in 10 weeks to ensure resolution. THIS IS AN ELECTRONICALLY VERIFIED FINAL REPORT 09/01/2024 3:40 PM - Electronically signed by Shiv Akins M.D. MJ: [email or web address] Report ID: [id number] Reading Location: [place] [address] Андрей Arana MD IMG CT PROCEDURES Final Result from Last 3 Months Insurance [facility] Care Teams Social Media Editor Relationship Specialty Start Date End Date Olivia Roman DO PCP - General Family Medicine 03/18/20
--- OUTSIDE RECORDS SUMMARY | 2024-11-25 00:36 | XMS_ITS | Encounter Summary ---
Author Organization [facility] Address [address] [place] [address] Care Team Providers Care Casino Cage Manager Name Role Phone Olivia Roman DO Primary Care Provider [phone] Encounter Details Date Type Department Care Team (Late st Contact Info) Description 10/01/2020 [employer] Message Enc [facility] Family Medicine - [place] [address], [address] [place] [address] Olivia Roman DO [address] [place] [address] RE: Follow Up/Update Social History [...] Sex Assigned at Female 03/19/2024 9:04 AM MASTER BARBER Legal Sex Female 2:39 PM CDT Gender [...] documented as of this encounter Care Teams Casino Cage Manager Relationship Specialty Start Date End Date Olivia Roman DO [address] [place] [address] PCP - General FAMILY PRACTICE 11/22/19 documented as of this encounter
--- OUTSIDE RECORDS SUMMARY | 2024-11-25 00:36 | XMS_ITS | Encounter Summary ---
Author Organization [facility] Address [facility] [place] [address] Care Team Providers Care Combatant Swimmer Name Role Phone Olivia Roman Primary Care Provider [phone] Encounter Details Date Type Department Care Team (Late st Contact Info) Description 09/10/2019 [employer] Message Enc [facility] Medical [facility] Family Medicine - [place] [address], [address] [place] [phone] Ambrosio Beth DO [address] [place] [address] Medication Questions Social History Tobacco Use Types Packs/Day Years Used Date Smoking Tobacco: Never Smokeless Tobacco: Never Alcohol Use Standard Drinks/Week Comments Not Currently 0 (1 standard drink = 0.6 oz pur e alcohol) PHQ-2 Answer Date Recorded PHQ-2 Score 3 02/14/2019 Comments No Sex and Gender Information Value Date Recorded Sex Assigned at Female 03/19/2024 9:04 AM CONCRETER Legal Sex Female 2:39 PM CDT Gender Identity Not on file Sexual Orientation Not on file COVID-19 Exposure Response Date Recorded In the last month, have you been in contact with someone who was confirmed or suspected to have Coronavirus / COVID-19? No / Unsure 09/09/2019 3:34 PM CDT documented as of this encounter Progress Notes * Zenaida Lundberg RN - 09/10/2019 4:23 PM CDT Defer to provider for review and advice. K: 3.0. PCP notified to review encounter via [employer]. documented in this encounter Plan of Treatment Not on file documented as of this encounter Visit Diagnoses Not on filedocumented in this encounter Additional Health Concerns Infection Onset Date Last Indicated Resolved Time COVID-19 Rule Out 06/23/2021 06/23/2021 06/23/2021 9:50 AM CDT COVID-19 Rule Out 07/13/2022 07/13/2022 07/13/2022 12:20 PM CDT Assessment Noted Time PHQ-9 Depression Total Score: 10 02/14/ 019 9:47 AM CONCRETER documented as of this encounter Care Teams Combatant Swimmer Relationship Specialty Start Date End Date Olivia Roman DO [address] [place] [address] PCP - General FAMILY PRACTICE 11/22/19 documented as of this encounter
--- OUTSIDE RECORDS SUMMARY | 2024-11-25 00:36 | XMS_ITS | Encounter Summary ---
Author Organization [facility] Address [facility] [place] [address] Care Team Providers Care Medical Case Manager Name Role Phone Olivia Roman DO Primary Care Provider [phone] Encounter Details Date Type Department Care Team (Late st Contact Info) Description 12/31/2020 [employer] Message Enc [facility] Multispecialty Care - [facility] [address] [facility], [address] [address] Jackson Sal MD [address] [facility], [address] [id number] Other Social History Tobacco Use Types Packs/Day Years [...] Sex Assigned at Female 03/19/2024 9:04 AM 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 No / Unsure 12/25/2020 9:22 AM CDT documented as of this encounter [...] documented as of this encounter Care Teams Medical Case Manager Relationship Specialty Start Date End Date Olivia Roman DO [address] [place] [address] PCP - General FAMILY PRACTICE 11/22/19 documented as of this encounter
--- OUTSIDE RECORDS SUMMARY | 2024-11-25 00:36 | XMS_ITS | Encounter Summary ---
Author Organization [facility] Address [address] [place] [address] Care Team Providers Care Lead Mechanical Engineer Name Role Phone Olivia Roman DO Primary Care Provider [phone] Encounter Details Date Type Department Care Team (Late st Contact Info) Description 03/01/2024 Therapy Plan [facility] Outpatient [place] [address] Olivia Roman DO [address] [place] [address] Social History Tobacco Use Types [...] Sex Assigned at Female 03/19/2024 9:04 AM TEST DECK SUPERVISOR Legal Sex Female 2:39 PM CDT Gender [...] documented as of this encounter Care Teams Lead Mechanical Engineer Relationship Specialty Start Date End Date Olivia Roman DO [address] [place] [address] PCP - General FAMILY PRACTICE 11/22/19 documented as of this encounter
--- OUTSIDE RECORDS SUMMARY | 2024-11-25 00:36 | XMS_ITS | Encounter Summary ---
Author Organization [facility] Address [address] [place] [address] Care Team Providers Care Coach Driver Name Role Phone Olivia Roman DO Primary Care Provider [phone] Encounter Details Date Type Department Care Team (Late st Contact Info) Description 10/29/2024 Results Follow-Up [facility] [address] [place] [address] [place] [address] Olivia Roman DO [facility] [place] [address] MG SCREENING W MILLY BIANKA DIGI Social History Tobacco Use Types Packs/Day Years Used Date Smoking Tobacco: Never Passive Smoke Exposure: Never Smokeless Tobacco: Never Alcohol Use Standard Drinks/Week Comments Not Currently 0 (1 standard drink = 0.6 oz pur e alcohol) PHQ-2 Answer Date Recorded Patient Health Questionnaire-2 Score 0 05/28/2024 Comments No Sex and Gender Information Value Date Recorded Sex Assigned at Female 03/19/2024 9:04 AM 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
--- OUTSIDE RECORDS SUMMARY | 2024-11-25 00:36 | XMS_ITS | Clinical Summary ---
Author Organization [facility] Address [address] [place] [address] Care Team Providers Care Medical Clerical Assistant Name Role Phone Meghan Pruett DO Primary Care Provider [phone] Allergies Active Allergy Reactions Criticality Noted Date Comments Cat Dander Itching,Sneezing,Eye s Water & Itch Low 09/18/2019 Dog Dander Itching,Sneezing,Eye s Water & Itch Low 09/18/2019 Dust Mite Extract Itching Low 09/18/2019 Ferric Carboxymaltose Hives 06/06/2022 White Wm Itching Low 09/19/2019 Medications carboxymethylcel lulose PF (REFRESH PLUS) 0.5 % ophthalmic solutionIndicati ons:Dry eye Place 1 drop into both eyes 2 (two) times daily. 50 each 11/29/2021 Active ketoconazole (NIZORAL) 2 % shampoo 01/18/2022 Active tranexamic acid (LYSTEDA) 650 MG tablet Take 2 tablets (1,300 mg total) by mouth 3 (three) times daily. 01/06/2023 Active triamcinolone (KENALOG) 0.1 % creamIndications :Irritant contact dermatitis due to other agents Apply to the finger tips bid for 7 days 45 g 01/10/2023 Active amiloride (MIDAMOR) 5 MG tabletIndication s:Nephrolithiasi s,Hypertension, unspecified type TAKE 1 TABLET DAILY 90 tablet 3 04/05/2024 Active potassium citrate CR (UROCIT-K) 10 MEQ (1080 MG) tabletIndication s:Hypokalemia Take 2 tablets (20 mEq total) by mouth 2 (two) times a day. 360 tablet 3 09/16/2024 Active losartan (COZAAR) 25 MG tabletIndication s:Hypertension, unspecified type Take 1 tablet (25 mg total) by mouth daily. 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 Urinary calculus, unspecified 07/09/2020 Positive KRISSY (antinuclear antibody) 12/01/2019 History of low potassium 11/20/2019 Dry eye syndrome of both eyes 11/20/2019 Anemia 11/20/2019 Papillary conjunctivitis 10/21/2019 Eczematous dermatitis of upper eyelids of both e yes 10/21/2019 Menorrhagia with regular cycle 07/22/2019 Contraceptive surveillance 07/22/2019 Iron deficiency anemia due to chronic blood loss 07/22/2019 Kidney stones 10/18/2018 Common wart 10/18/2018 Essential (primary) hypertension 08/03/2017 Hypokalemia 08/03/2017 Encounters Date Type Department Care Team Description 11/08/2024 Scan [facility] SRV[facility] Scanned, [facility] Procedure (SCAN) 11/07/2024 Telephone [facility] Family Medicine - [address], [address] [place] [address] Meghan Pruett DO Referral 10/29/2024 12:40 PM CDT - 10/29/2024 11:59 PM CDT Hospital Encounter [facility] [place] [id number] Meghan Pruett DO Discharge Disposition: Home or Self Care (Routine Discharge) 10/29/2024 Results Follow-Up [facility] [place] [address] Meghan Pruett DO MG SCREENING W MILLY BIANKA DIGI 10/29/2024 Travel 10/03/2024 8:07 AM CDT - 10/03/2024 2:47 PM CDT Hospital Encounter [facility] [place] [address] Joselyn Hernadez MD Discharge Disposition: Home or Self Care (Routine Discharge) 10/03/2024 Travel 09/22/2024 Results Follow-Up [facility] [address], [address] [place] [phone] Meghan Pruett, [place] PELVIC NON OB COMP TA+TV 09/20/2024 1:50 PM CDT - 09/20/2024 11:59 PM CDT Hospital Encounter [facility] [place] [address] Meghan Pruett, Discharge Disposition: Home or Self Care (Routine Discharge) 09/20/2024 Travel 09/16/2024 MyChart Message Enc [facility] [address], [address] [place] [phone] Meghan Pruett, Iron infusion 09/10/2024 Scan HEALTH INFO SRVCS Scanned, [facility] 09/10/2024 Therapy Plan [facility] [place] [address] Meghan Pruett, 09/10/2024 Orders Only [facility] [place] [address] Meghan Pruett, 09/10/2024 Orders Only [facility], [address] [address] Meghan Pruett, 09/09/2024 7:40 AM CDT Office Visit [facility] [address], [address] [place] [phone] Meghan Pruett, Follow Up (Pt here to discuss iron infusions. [facility] lab ); Back Pain (Pt c/o LBP x 1.5 months. ) 09/09/2024 Travel 08/28/2024 10:04 AM CDT - 08/28/2024 11:59 PM CDT Hospital Encounter [facility] [address] Emily Pascal MD Discharge Disposition: Home or Self Care (Routine Discharge) 08/28/2024 Orders Only [facility] [address] Emily Pascal MD 08/28/2024 Travel from Last 3 Months Immunizations Immunization Administration Dates Next Due Fluzone (IIV3, Trivalent, 0. 5 ML Prefilled Syringe) 12/20/2023 Fluzone 6 Months+ Quad (0.5 mL Prefilled Syringe) 11/25/2022,12/15/2021,12/25/2020,2019 Influenza (FluMist) 03/10/2015 Influenza (Generic) 12/03/2018, 8,01/11/2016,2013 Influenza Adult (Generic) 01/16/2017 PFIZER COVID-19 (ORIGINAL FORMULATION, PURPLE CAP) mRNA, LNP-S, PF, 30 MCG/0.3 ML DOSE 01/29/2021 Tdap (Adacel) 01/07/2014 Tdap (Generic) 07/28/2009 Family History Medical History Relation Comments Asthma Daughter 1 Defects Daughter 2 ASD Alcohol Abuse Father Drug Abuse Father Heart Disease Father mitral valve pro lapse Hypertension Father Cancer Maternal Aunt Cancer Maternal Grandmother Diabetes Maternal Grandmother Colon Cancer Other Alzheimers Paternal Grandfather stomach cancer Paternal Grandmother Stroke Paternal Uncle Relation Status Comments Daughter 1 Alive Daughter 2 Alive Father Alive Maternal Aunt Maternal Grandmother Mother Alive Other Alive Paternal Grandfather Paternal Grandmother Paternal Uncle Social History Tobacco Use Types Packs/Day Years Used Date Smoking Tobacco: Never Passive Smoke Exposure: Never Smokeless Tobacco: Never Tobacco Cessation:Counseling Given: No Alcohol Use Standard Drinks/Week Comments Not Currently 0 (1 standard drink = 0.6 oz pur e alcohol) PHQ-2 Answer Date Recorded Patient Health Questionnaire-2 Score 0 05/28/2024 Comments No Sex and Gender Information Value Date Recorded Sex Assigned at Female 03/19/2024 9:04 AM BED MAKER Legal Sex Female 2:39 PM CDT Gender Identity Not on file Sexual Orientation Not on file Last Filed Vital Signs Vital Sign Reading Time Taken Comments Blood Pressure 116/78 10/03/2024 2:41 PM CDT Pulse 81 10/03/2024 2:41 PM CDT Temperature 37.1 C (98.7 F) 10/03/2024 2:41 PM CDT Respiratory Rate 15 10/03/2024 2:41 PM CDT Oxygen Saturation 97% 10/03/2024 2:41 PM CDT Inhaled Oxygen Concentration - - Weight 63.4 kg (139 lb 12.8 oz) 09/09/2024 7:48 AM CDT Height 157.5 cm (5' 2) 09/09/2024 7:48 AM CDT Body Mass Index 25.57 09/09/2024 7:48 AM CDT Plan of Treatment Health Maintenance Due Date Last Done Comments Cervical Cancer Screening Pap Smear (Age 30 to 64) Every 3 Years 1981 Hepatitis B Vaccines (1 of 3 - 19+ 3-dose series) 2000 HPV Vaccines (1 - 3-dose SCDM series) 2008 DTaP, Tdap and Td Vaccines (3 - Td or Tdap) 01/08/2024 01/07/2014, 07/28/2009 COVID-19 Vaccine ( - season) 2024 01/29/2021, 05/12/2020 Annual Physical 09/09/2025 09/09/2024, 05/05, 01/10/2023, Additional history exists Mammogram Screening 10/29/2026 10/29/2024, 07/17/2023, 05/20/2022 Cervical Cancer Screening Pap with HPV Testing (Age 30 to 64) Every 5 Years 12/08/2027 12/07/2022 Cervical Cancer Screening with HPV 12/08/2027 EGD-Covarrubias's Surveillance Discontinued 02/04/2021 Hepatitis C Completed 11/03/2023 PHQ-2 (Physician [place]) Completed 05/28/2024 Meningococcal B Vaccine Aged Out No l onger eligible based on patient's age to complete this topic Meningococcal Vaccine Aged Out No belen giuseppe eligible based on patient's age to complete this topic Pneumococcal Vaccine: Pediatrics (0 to 5 Years) and At-Risk Patients (6 to 49 Years) Aged Out No longer eligible based on patient's age to complete this topic RSV Immunizations Under 20 Months Aged Out No longer eligible based on patient's age to complete this topic Procedures Procedure Name Priority Date/Time Associated Diagnosis Comments PROCEDURE GENERIC (SCAN ORDER) 11/08/2024 MG SCREENING W MILLY BIANKA DIGI Routine 10/29/2024 1:05 PM CDT Visit for screening mammogram CBC W/DIFF AUTOMATED Routine 10/03/2024 8:53 AM CDT Anemia, due to inadequate iron intake Iron deficiency COMPREHENSIVE METABOLIC PANEL Routine 10/03/2024 8:53 AM CDT Anemia, due to inadequate iron intake Iron deficiency US PELVIC NON OB COMP TA+TV KOTA 09/20/2024 3:46 PM CDT Adnexal cyst HC URINALYSIS AUTO W/O MICRO Routine 08/28/2024 10:21 AM CDT Nephrolithiasis HC CREATININE OTH SOURCE Routine 08/28/2024 10:21 AM CDT Nephrolithiasis IRON SAT PANEL (IRON,IBC,%SAT) Routine 08/28/2024 10:20 AM CDT Nephrolithiasis FERRITIN Routine 08/28/2024 10:20 AM CDT Nephrolithiasis HEPATITIS PANEL,ACUTE Routine 11/03/2023 9:21 AM CDT Elevated LFTs OUTSIDE CYTOPATH CERV/VAG INTERPRET (PAP) 12/07/2022 EGD Routine 02/04/2021 8:08 AM BED MAKER from Last 3 Months or Most Recently Relevant to Health Maintenance Results * PROCEDURE GENERIC (SCAN ORDER) (11/08/2024) 11/08/2024 us [facility] Scanned SCANNING Final Resu lt * MG SCREENING W MILLY BIANKA DIGI (10/29/2024 1:05 PM CDT) Anatomical Region Laterality Modality Breast Bilateral Mammography 10/29/2024 2:06 PM CDT Impressions 10/29/2024 2:08 PM CDT IMPRESSION: No suspicious mammographic findings. Recommendation: 1. Routine Screening, Bilateral Assessment: ACR BI-RADS 2 - BENIGN FINDING(S) Ordered By: MEGHAN PRUETT Interpreted By: Kush Brown, 10/29/2024 2:06 PM Narrative 10/29/2024 2:08 PM CDT [facility] [address] [place] [address] Examination: Screening bilateral mammogram Exam Date/Time: 10/29/2024 12:53 PM Clinical history: No current complaints. Comparison: 07/17/2023 Technique: Digital screening mammography of both breasts was performed. Breast tomosynthesis acquisitions were obtained and reviewed. This study was read with the assistance of a computer-aided detection system. Tissue density: The breasts are heterogeneously dense, which may obscure small masses. Findings: No suspicious masses, malignant appearing calcifications, skin thickening or other abnormalities are present. No significant change from the prior exam. us Meghan Abel DO MAMMO Final Result * (ABNORMAL) COMPREHENSIVE METABOLIC PANEL (10/03/2024 8:53 AM CDT) GLUCOSE 99 70 - 99 MG/DL 10/03/2024 9:29 AM CDT [facility] BUN 14 7 - 18 MG/DL 10/03/2024 9:29 AM T [facility] CREATININE S/P/B 0.70 0.55 - 1.02 MG/DL 10/03/2024 9:29 AM T [facility] SODIUM S/P/B 138 136 - 145 MMOL/L 10/03/2024 9:29 AM T [facility] POTASSIUM S/P/B 4.1 3.5 - 5.1 MMOL/L 10/03/2024 9:29 AM T [facility] CHLORIDE S/P/B 109 97 - 115 MMOL/L 10/03/2024 9:29 AM T [facility] CO2 25.7 21 - 32 MMOL/L 10/03/2024 9:29 AM T [facility] CALCIUM S/P/B 8.8 8.5 - 10.1 MG/DL 10/03/2024 9:29 AM T [facility] BILIRUBIN TOTAL S/P/B 0.4 0.2 - 1.2 MG/DL 10/03/2024 9:29 AM T [facility] Comment: THIS ASSAY IS NOT RECOMMENDED FOR PATIENTS UNDERGOING TREATMENT WITH ELTROMBOPAG DUE TO THE POTENTIAL FOR FALSELY ELEVATED RESULTS. TOTAL PROTEIN S/P/B 6.9 6.4 - 8.2 G/DL 10/03/2024 9:29 AM T [facility] ALBUMIN S/P/B 3.7 3.4 - 5.0 G/DL 10/03/2024 9:29 AM T [facility] AST 15 15 - 37 U/L 10/03/2024 9:29 AM T [facility] ALT 22 14 - 55 U/L 10/03/2024 9:29 AM T [facility] ALKALINE PHOSPHATASE S/P/B 45(L) 50 - 136 U/L 10/03/2024 9:29 AM CDT [facility] ANION GAP 3.3 2 - 10 MMOL/L 10/03/2024 9:29 AM CDT [facility] BUN CREATININE RATIO 20.0 6 - 26 10/03/2024 9:29 AM CDT [facility] A/G RATIO 1.2 1.0 - 2.0 RATIO 10/03/2024 9:29 AM CDT [facility] GFR ESTIMATE >90 >90 ML/MIN/1.7 3 M2 10/03/2024 9:29 AM CDT [facility] Comment: NOTE: eGFR is not calculated for patients <18 years of age or gender unknown. This is an estimated GFR calculation using the new CKD EPI creatinine equation without race and so does not require a correction factor for race. This estimated GFR should not be used for calculating drug doses. 10/03/2024 8:53 AM CDT us Meghan Abel DO LABORATORY Final Result [facility] [address] [place] [address], [place] [phone] * (ABNORMAL) CBC W/DIFF AUTOMATED (10/03/2024 8:53 AM CDT) WBC 4.25(L) 4.5 - 11.0 x10'3/uL 10/03/2024 9:07 AM CDT [facility] RBC 3.94(L) 4.20 - 5.40 x10'6/uL 10/03/2024 9:07 AM CDT [facility] HGB 12.1 12.0 - 16.0 G/DL 10/03/2024 9:07 AM CDT [facility] HCT 35.4(L) 38.0 - 48.0 % 10/03/2024 9:07 AM CDT [facility] MCV 89.8 81.0 - 99.0 FL 10/03/2024 9:07 AM CDT [facility] MCH 30.7 27.0 - 31.0 PG 10/03/2024 9:07 AM CDT [facility] MCHC 34.2 32.0 - 36.0 G/DL 10/03/2024 9:07 AM CDT [facility] RDW 12.2 11.5 - 14.5 % 10/03/2024 9:07 AM CDT [facility] PLT 235 130 - 400 x10'3/uL 10/03/2024 9:07 AM CDT [facility] MPV 9.8 9.3 - 12.2 FL 10/03/2024 9:07 AM CDT [facility] DIFFERENTIAL TYPE AUTOMATED DIFFERENTIAL 10/03/2024 9:07 AM CDT [facility] NEUTROPHILS % 60.3 % 10/03/2024 9:07 AM CDT [facility] LYMPHOCYTES % 29.4 % 10/03/2024 9:07 AM CDT [facility] MONOCYTES % 7.5 % 10/03/2024 9:07 AM CDT [facility] EOSINOPHILS 1.9 % 10/03/2024 9:07 AM CDT [facility] BASOPHILS 0.2 % 10/03/2024 9:07 AM CDT [facility] IMMATURE GRANS % 0.7 % 10/04/19 9:07 AM CDT [facility] ABS. NEUTROPHILS 2.56 1.80 - 7.70 x10'3/uL 10/03/2024 9:07 AM CDT [facility] ABS. LYMPHOCYTES 1.25 1.00 - 4.80 x10'3/uL 10/03/2024 9:07 AM CDT [facility] ABS. MONOCYTES 0.32 0.24 - 0.86 x10'3/uL 10/03/2024 9:07 AM CDT [facility] ABS. EOSINOPHILS 0.08 0.04 - 0.36 x10'3/uL 10/03/2024 9:07 AM CDT [facility] ABS. BASOPHILS 0.01 0.01 - 0.08 x10'3/uL 10/03/2024 9:07 AM CDT [facility] ABS. IMMATURE GRANULOCYTES 0.03 0.00 - 0.49 x10'3/uL 10/03/2024 9:07 AM CDT [facility] 10/03/2024 8:53 AM CDT us Meghan Pruett DO LABORATORY Final Result [facility] [address] [place] [address], [place] [phone] * US PELVIC NON OB COMP TA+TV (09/20/2024 3:46 PM CDT) Anatomical Region Laterality Modality Pelvis Ultrasound 09/20/2024 3:52 PM CDT Impressions 09/20/2024 4:08 PM CDT IMPRESSION: 1. 2.2 cm subtle heterogeneity in the anterior uterine fundus most consistent with intramural leiomyoma. It is not identified on the 2022 ultrasound. Could be further evaluated on pelvic MRI without and with contrast if clinically indicated. 2. 2.1 cm right ovarian simple cyst. 1.2 cm left ovarian follicle or small simple cyst. No follow-up is required. Ordered By: MEGHAN PRUETT Interpreted By: Franck Delgado, 09/20/2024 3:52 PM Narrative 09/20/2024 4:08 PM CDT [address] [address] IMAGING STUDIES: US PELVIC NON OB COMP TA+TV DATE: 09/20/2024 2:14 PM HISTORY: 2.5mm left to 1.1cm . 43-year-old female. LMP 09/07/2024. Lower back pain. Vaginal bleeding between menstrual periods. Left sided cramping and twinge sensation for 8 weeks. No prior pelvic surgery. On CT abdomen pelvis without contrast 08/27/2024 at [facility], reported adjacent 2.5 mm and 1.1 cm low density lesions in the left adnexa suggestive of adjacent cysts or potential single septated cyst. Follow-up. COMPARISON: Ultrasound pelvis 06/02/2022. Report from CT abdomen pelvis without contrast 08/27/2024 at [facility] (images not available for review at this time). DISCUSSION: Transabdominal pelvic ultrasound: Anteverted uterus is 9.9 x 4 x 6.2 cm. Endometrium is 11.7 mm thickness. Right ovary 3.1 x 1.6 x 3 cm. 2.5 x 1.8 x 1.6 cm right ovarian cyst. Left ovary is not visualized on transabdominal imaging. Color Doppler and pulse Doppler imaging of the right ovary is within normal limits. Endovaginal pelvic ultrasound: Anteverted uterus is 9.2 x 4.2 x 5.5 cm. Endometrium is 12.6 mm thickness. In the anterior uterus is subtle heterogeneity of 2.2 x 2.2 x 2.2 cm and abutting the endometrium consistent with intramural leiomyoma. Right ovary 2.6 x 1.6 x 3.1 cm. Within the right ovary is a 2.1 x 2 x 1.7 cm simple cyst. Left ovary 2.9 x 1.1 x 1.5 cm. Within the left ovary is a 1.2 x 0.9 x 0.8 cm follicle or small simple cyst. Color Doppler and pulse Doppler imaging of the ovaries and adnexa are within normal limits. No pelvic free fluid. Procedure Note Franck Delgado MD - 09/20/2024 [facility] [address] [place], [place] [address] IMAGING STUDIES: US PELVIC NON OB COMP TA+TVDATE: 09/20/2024 2:14PM HISTORY: 2.5mm left to 1.1cm . 43-year-old female. LMP 09/07/2024.Lower back pain. Vaginal bleeding between menstrual periods. Left sidedcramping and twinge sensation for 8 weeks. No prior pelvic surgery. On CTabdomen pelvis without contrast 08/27/2024 at [facility], reported adjacent 2.5 mmand 1.1 cm low density lesions in the left adnexa suggestive of adjacentcysts or potential single septated cyst. Follow-up. COMPARISON: Ultrasound pelvis 06/02/2022. Report from CT abdomen pelviswithout contrast 08/27/2024 at [facility] (images not available for review at thistime). DISCUSSION: Transabdominal pelvic ultrasound: Anteverted uterus is 9.9 x 4 x 6.2 cm. Endometrium is 11.7 mmthickness. Right ovary 3.1 x 1.6 x 3 cm. 2.5 x 1.8 x 1.6 cm right ovarian cyst. Left ovary is not visualized on transabdominal imaging. Color Doppler and pulse Doppler imaging of the right ovary is withinnormal limits. Endovaginal pelvic ultrasound: Anteverted uterus is 9.2 x 4.2 x 5.5 cm. Endometrium is 12.6 mmthickness. In the anterior uterus is subtle heterogeneity of 2.2 x 2.2 x2.2 cm and abutting the endometrium consistent with intramuralleiomyoma. Right ovary 2.6 x 1.6 x 3.1 cm. Within the right ovary is a 2.1 x 2 x 1.7cm simple cyst. Left ovary 2.9 x 1.1 x 1.5 cm. Within the left ovary is a 1.2 x 0.9 x 0.8cm follicle or small simple cyst. Color Doppler and pulse Doppler imaging of the ovaries and adnexa arewithin normal limits. No pelvic free fluid. IMPRESSION: 1. 2.2 cm subtle heterogeneity in the anterior uterine fundus mostconsistent with intramural leiomyoma. It is not identified on the 2022ultrasound. Could be further evaluated on pelvic MRI without and withcontrast if clinically indicated. 2. 2.1 cm right ovarian simple cyst. 1.2 cm left ovarian follicle or smallsimple cyst. No follow-up is required. Ordered By: MEGHAN PRUETT Interpreted By: Franck Delgado, 09/20/2024 3:52 PM us Meghan Pruett DO ULTRASOUND Final Result * PROTEIN CREAT RATIO URINE (08/28/2024 10:21 AM CDT) PROTEIN URINE TOTAL RANDOM 8.2 <10 MG/DL 08/28/2024 10:53 AM CDT [facility] CREATININE (U) 95.5 28 - 217 MG/DL 08/28/2024 10:53 AM CDT [facility] PROTEIN/CREATIN INE RATIO 0.1 08/28/2024 10:53 AM CDT [facility] URINE SPECIMEN / Unknown 08/28/2024 10:21 AM CDT us Emily Pascal MD URINE ORDERABLES Final Result [facility] [address] [place] [address], [place] [phone] * URINALYSIS (08/28/2024 10:21 AM CDT) SPECIMEN TYPE URINE CLEAN CATCH 08/28/2024 10:22 AM CDT [facility] COLOR (U) LIGHT YELLOW 08/28/2024 10:40 AM CDT [facility] TRANSPARENCY TURBID 08/28/2024 10:40 AM CDT [facility] SPECIFIC GRAVITY (U) 1.013 1.001 - 1.030 08/28/2024 10:40 AM CDT [facility] U PH 7.5 5.0 - 9.0 08/28/2024 10:40 AM CDT [facility] LEUKOCYTES (U) NEGATIVE NEGATIVE 08/28/2024 10:40 AM CDT [facility] NITRITES NEGATIVE NEGATIVE 08/28/2024 10:40 AM CDT [facility] PROTEIN RANDOM (U) NEGATIVE <30 MG/DL 08/28/2024 10:40 AM CDT [facility] GLUCOSE (U) NORMAL NORMAL MG/DL 08/28/2024 10:40 AM CDT [facility] KETONES MG/DL (U) NEGATIVE NEGATIVE MG/DL 08/28/2024 10:40 AM CDT [facility] UROBILINOGEN NORMAL NORMAL MG/DL 08/28/2024 10:40 AM CDT [facility] BILIRUBIN (U) NEGATIVE NEGATIVE MG/DL 08/28/2024 10:40 AM CDT [facility] BLOOD (U) NEGATIVE NEGATIVE 08/28/2024 10:40 AM CDT [facility] URINE SPECIMEN OBTAINED BY CLEAN CATCH PROCEDURE / Unknown 08/28/2024 10:21 AM CDT Emily Pascal MD URINE ORDERABLES Final Result [facility] [address] [place] [address], * (ABNORMAL) IRON SAT PANEL (IRON,IBC,%SAT) (08/28/2024 10:20 AM CDT) IRON 50 50.0 - 170.0 MCG/DL 08/29/2024 10:40 AM CDT [facility] IRON BINDING CAPACITY 318 250 - 450 MCG/DL 08/29/2024 10:40 AM CDT [facility] IRON SATURATION 16(L) 20 - 55 % 10:40 AM CDT [facility] 08/28/2024 10:2 0 AM CDT us Emily Pascal MD LABORATORY Final Result [facility] [address] [place] [address], [place] [phone] * FERRITIN (08/28/2024 10:20 AM CDT) FERRITIN 17.0 8.0 - 388.0 NG/ML 08/29/2024 10:13 AM CDT [facility] 08/28/2024 10:2 0 AM CDT Emily Pascal MD LABORATORY Final Result Performing Organization Address City/[facility]/ZIP Co de Phone Number [facility] [address] [place] [address], [place] [phone] * HEPATITIS PANEL,ACUTE (11/03/2023 9:21 AM CDT) HEPATITIS B SURFACE AG NON-REACTI VE NON-REACTI VE 11/03/2023 10:49 AM CDT [facility] HEP B CORE IGM NON-REACTI VE NON-REACTI VE 11/03/2023 11:15 AM CDT [facility] HAV IGM NON-REACTI VE NON-REACTI VE 11/03/2023 11:32 AM CDT [facility] HEPATITIS C AB NON-REACTI VE NON-REACTI VE 11/03/2023 11:14 AM CDT [facility] 11/03/2023 9:21 AM CDT us Meghan Abel DO LABORATORY Final Result [facility] [address] [place] [address], [place] [phone] * PAP SMEAR WITH HPV (12/07/2022) 12/07/2022 [facility] Scanned SCANNING Final Resu lt from Last 3 Months or Most Recently Relevant to Health Maintenance Insurance Care Teams Medical Clerical Assistant Relationship Specialty Start Date End Date Meghan Pruett DO [facility] [place], [place] [id number] PCP - General FAMILY PRACTICE 11/22/19
--- OUTSIDE RECORDS SUMMARY | 2024-11-25 00:36 | XMS_ITS | Encounter Summary ---
Author Organization [facility] Address [address] [place] [address] Care Team Providers Care Fire Extinguisher Installer Name Role Phone Olivia Roman DO Primary Care Provider [phone] Encounter Details Date Type Department Care Team (Late st Contact Info) Description 10/27/2021 [employer] Message Enc [facility] Family Medicine - [place] [address] [facility], [address] [place] [address] Olivia Roman DO [address] [place] [address] Itchy scalp Social History Tobacco Use Types Packs/Day Years Used Date Smoking Tobacco: Never Smokeless Tobacco: Never Alcohol Use Standard Drinks/Week Comments Not Currently 0 (1 standard drink = 0.6 oz pur e alcohol) PHQ-2 Answer Date Recorded PHQ-2 Score - If the patient scores above 3, please move on to questions 3-9 0 08/06/2021 Comments No Sex and Gender Information Value Date Recorded Sex Assigned at Female 03/19/2024 9:04 AM D[employer]NUT [employer] Legal Sex Female 2:39 PM CDT Gender Identity Not on file Sexual Orientation Not on file COVID-19 Exposure Response Date Recorded In the last 10 days, have yo u been in contact with someone who was confirmed or suspected to have Coronavirus/COVID-19? No / Unsure 09/29/2021 9:53 AM CDT documented as of this encounter [...] documented as of this encounter Care Teams Fire Extinguisher Installer Relationship Specialty Start Date End Date Olivia Roman DO [facility] [place] [address] PCP - General FAMILY PRACTICE 11/22/19 documented as of this encounter
--- OUTSIDE RECORDS SUMMARY | 2024-11-25 00:36 | XMS_ITS | Encounter Summary ---
Author Organization [facility] Address [facility] [place] [address] Care Team Providers Care Pattern Maker Programer Name Role Phone Olivia Roman DO Primary Care Provider [phone] Encounter Details Date Type Department Care Team (Late st Contact Info) Description 02/12/2020 Vintedt Message Enc [facility] Medical Group Multispecialty Care - [facility] 3 [facility], [address] [phone] Jackson Sal MD 3 [facility], [address] [address] RE: Other Social History Tobacco Use Types Packs/Day Years Used Date Smoking Tobacco: Never Smokeless Tobacco: Never Alcohol Use Standard Drinks/Week Comments Not Currently 0 (1 standard drink = 0.6 oz pur e alcohol) PHQ-2 Answer Date Recorded PHQ-2 Score 0 09/19/2019 Comments No Sex and Gender Information Value Date Recorded Sex Assigned at Female 03/19/2024 9:04 AM DIRECTOR OF FINANCIAL AID Legal Sex Female 2:39 PM CDT Gender Identity Not on file Sexual Orientation Not on file COVID-19 Exposure Response Date Recorded In the last month, have you been in contact with someone who was confirmed or suspected to have Coronavirus / COVID-19? No / Unsure 01/17/2020 7:49 AM DIRECTOR OF FINANCIAL AID documented as of this encounter Plan of Treatment Not on file documented as of this encounter Visit Diagnoses Not on filedocumented in this encounter Additional Health Concerns Infection Onset Date Last Indicated Resolved Time COVID-19 Rule Out 06/23/2021 06/23/2021 06/23/2021 9:50 AM CDT COVID-19 Rule Out 07/13/2022 07/13/2022 07/13/2022 12:20 PM CDT Assessment Noted Time PHQ-9 Depression Total Score: 10 019 9:47 AM DIRECTOR OF FINANCIAL AID documented as of this encounter Care Teams Pattern Maker Programer Relationship Specialty Start Date End Date Olivia Roman DO [address] [place] [id number] PCP - General FAMILY PRACTICE 11/22/19 documented as of this encounter
--- OUTSIDE RECORDS SUMMARY | 2024-11-25 00:36 | XMS_ITS | Encounter Summary ---
Author Organization [facility] Address [facility] [place] [address] Care Team Providers Care Physician Practice Coordinator Name Role Phone Olivia Roman Primary Care Provider [phone] Encounter Details Date Type Department Care Team (Late st Contact Info) Description 11/06/2019 Startcappst Message Enc [facility] Medical Group Family Medicine - [place] [address], [address] [place] [phone] Ambrosio Beth DO [address] [place], [place] [phone] RE: Other Social History Tobacco Use Types Packs/Day Years Used Date Smoking Tobacco: Never Smokeless Tobacco: Never Alcohol Use Standard Drinks/Week Comments Not Currently 0 (1 standard drink = 0.6 oz pur e alcohol) PHQ-2 Answer Date Recorded PHQ-2 Score 0 09/19/2019 Comments No Sex and Gender Information Value Date Recorded Sex Assigned at Female 03/19/2024 9:04 AM MANAGER INTEGRATED Legal Sex Female 2:39 PM CDT Gender Identity Not on file Sexual Orientation Not on file documented as of this encounter Progress Notes * Lima Ma MA - 11/06/2019 12:20 PM CDT Sent orders to Dr. Beth to approve/refuse- please confirm diagnosis's as well documented in this encounter Plan of Treatment Not on file documented as of this encounter Results * (ABNORMAL) LIPID PANEL (11/15/2019 1:20 PM CDT) CHOLESTEROL 240(H) <200 MG/DL 11/15/2019 3:04 PM CDT [facility] TRIGLYCERIDES 156(H) <150 MG/DL 11/15/2019 3:04 PM CDT [facility] HDL 70 >40.0 MG/DL 11/15/2019 3:04 PM CDT [facility] LDL (CALCULATED) 139(H) <100 MG/DL 11/15/2019 3:04 PM CDT [facility] NON HDL CHOLESTEROL 170(H) <130 MG/DL 11/15/2019 3:04 PM CDT [facility] CHOL/HDL RATIO 3.4 0.0 - 4.5 11/15/2019 3:04 PM CDT [facility] VLDL CALCULATION 31 5 - 55 MG/DL 11/15/2019 3:04 PM CDT [facility] LIPID INTERPRETATION 11/15/2019 3:04 PM CDT [facility] Comment: NIH CONCENSUS REPORT RECOMMENDATIONS: ADULT CHILD LOW RISK: CHOLESTEROL <200 <170 TRIGLYCERIDE <150 --- HDL >=60 --- LDL <100 <110 BORDERLINE: CHOLESTEROL 200-239 170-199 TRIGLYCERIDE 150-199 --- HDL 40-59 --- LDL 100-159 110-129 HIGH RISK: CHOLESTEROL >=240 >=200 TRIGLYCERIDE >=200 --- HDL <40 --- LDL >=160 >=130 11/15/2019 1:20 PM CDT Ambrosio Beth DO LABORATORY Final Result [facility] [address] [place] [address], [place] [phone] documented in this encounter Visit Diagnoses Diagnosis Screening, lipid- Primary Screening for lipoid disorders documented in this encounter Additional Health Concerns Infection Onset Date Last Indicated Resolved Time COVID-19 Rule Out 06/23/2021 06/23/2021 06/23/2021 9:50 AM CDT COVID-19 Rule Out 07/13/2022 07/13/2022 07/13/2022 12:20 PM CDT Assessment Noted Time PHQ-9 Depression Total Score: 10 019 9:47 AM MANAGER INTEGRATED documented as of this encounter Care Teams Physician Practice Coordinator Relationship Specialty Start Date End Date Olivia Roman DO [address] [place] [address] PCP - General FAMILY PRACTICE 11/22/19 documented as of this encounter
--- OUTSIDE RECORDS SUMMARY | 2024-11-25 00:36 | XMS_ITS | Encounter Summary ---
Author Organization [facility] Address [address] [place] [address] Care Team Providers Care Family Consumer Science Fcs Teacher Name Role Phone Olivia Roman DO Primary Care Provider [phone] Encounter Details Date Type Department Care Team (Late st Contact Info) Description 06/23/2021 fruux Message Enc [facility] Medical Group Family Medicine - [place] [address], [address] [place] [address] Olivia Roman DO [address] [place] [address] Cold Social History Tobacco Use Types Packs/Day Years [...] Sex Assigned at Female 03/19/2024 9:04 AM TAKE OUT WAITRESS Legal Sex Female 2:39 PM CDT Gender [...] documented as of this encounter Care Teams Family Consumer Science Fcs Teacher Relationship Specialty Start Date End Date Olivia Roman DO [address] [place] [id number] PCP - General FAMILY PRACTICE 11/22/19 documented as of this encounter
--- OUTSIDE RECORDS SUMMARY | 2024-11-25 00:36 | XMS_ITS | Encounter Summary ---
Author Organization [facility] Address [address] [place] [address] Care Team Providers Care Car Servicer Name Role Phone Olivia Roman DO Primary Care Provider Encounter Details Date Type Department Care Team (Late st Contact Info) Description 08/27/2023 Biogazelle Message Enc [facility] Medical Group Family Medicine - [place] [address] [facility], [address] [place] [address] Olivia Roman DO [address] [place] [address] Concern Social History Tobacco Use Types Packs/Day Years Used Date Smoking Tobacco: Never Passive Smoke Exposure: Never Smokeless Tobacco: Never Alcohol Use Standard Drinks/Week Comments Not Currently 0 (1 standard drink = 0.6 oz pur e alcohol) PHQ-2 Answer Date Recorded Patient Health Questionnaire-2 Score 0 05/24/2023 Comments No Sex and Gender Information Value Date Recorded Sex Assigned at Female 03/19/2024 9:04 AM SLAG EXPANDER Legal Sex Female 2:39 PM CDT Gender Identity Not on file Sexual Orientation Not on file documented as of this encounter Plan of Treatment Not on file documented as of this encounter Visit Diagnoses Not on filedocumented in this encounter Additional Health Concerns Assessment Noted Time PHQ-9 Depression Total Score: 0 05/24/19 9:41 AM CDT documented as of this encounter Care Teams Car Servicer Relationship Specialty Start Date End Date Olivia Roman DO [facility] [place] [address] PCP - General FAMILY PRACTICE 11/22/19 documented as of this encounter
--- OUTSIDE RECORDS SUMMARY | 2024-11-25 00:37 | XMS_ITS | Clinical Summary ---
Author Organization [facility] Address [address] [facility] [place] [address] Care Team Providers Care Dress Shoe Inspector Name Role Phone Olivia Roman DO Primary Care Provider [phone] Source Comments [facility],non-owned Affiliates and Associated Physician Practices is amultiple site organization consisting of ambulatory clinics and hospital sitesin [place], [place], [place] and [place]. This disclosure is being madepursuant to the Care Everywhere program and may not contain all information available regarding this patient. Last updated 17.[facility] Allergies No known active allergies Medications * Be aware that medications may not be up to date on this document. Alwaysverify current medications with the patient. 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 Positive KRISSY (antinuclear antibody) 12/01/2019 07/26/2022 Anemia 11/20/2019 07/26/2022 Dry eye syndrome of both eyes 11/20/2019 Eczematous dermatitis of upper eyelids of both e yes 10/21/2019 07/26/2022 Iron deficiency anemia due to chronic blood loss 07/22/2019 07/26/2022 Common wart 10/18/2018 07/26/2022 Vitamin D deficiency, unspecified 08/03/2017 07/26/2022 Social History Tobacco Use Types Packs/Day Years Used Date Smoking Tobacco: Never Smokeless Tobacco: Never Tobacco Cessation:Counseling Given: Not Answered Comments Unknown Sex and Gender Information Value Date Recorded Sex Assigned at Not on file Legal Sex Female 8:12 AM CDT Gender Identity Not on file Sexual Orientation Not on file Plan of Treatment Health Maintenance Due Date Last Done Comments HIV SCREENING 1996 DTAP/TDAP/TD VACCINES (1 - Tdap) 2000 HEPATITIS B VACCINE (1 of 3 - 19+ 3-dose series) 2000 PAP SMEAR 2002 HPV VACCINE (1 - 3-dose SCDM series) 2008 DEPRESSION SCREENING 03/06/2024 COVID-19 VACCINE (2 - season) 2024 01/29/2021 INFLUENZA VACCINE (#1) 2024 , 11/25/2022, 12/15/2021, Additional history exists MAMMOGRAM 10/29/2026 10/29/2024, 10/29/2024 LIPID TESTING 05/12/2027 05/11/2022, 11/15/2019 ZOSTER VACCINE (1 of 2) 12/22/2031 HEPATITIS C SCREENING Completed 11/03/2023 HIB VACCINE Aged Out No longer eligi ble based on patient's age to complete this topic MENINGOCOCCAL (Group B) VACCINE SHARED DECISION-MAKING Aged Out No longer eligible based on patient's age to complete this topic MENINGOCOCCAL GROUPS A/C/Y/W VACCINE Aged Out No longer eligible based on patient's age to complete this topic PNEUMOCOCCAL VACCINE Aged Out No long er eligible based on patient's age to complete this topic Insurance Care Teams Dress Shoe Inspector Relationship Specialty Start Date End Date Olivia Roman DO [address] [place] [id number] PCP - General 04/21/22
--- OUTSIDE RECORDS SUMMARY | 2024-11-25 00:37 | XMS_ITS | Encounter Summary ---
Author Organization [facility] Address [address] [place] [address] Care Team Providers Care Railroad Track Mechanic Name Role Phone Olivia Roman DO Primary Care Provider [phone] Encounter Details Date Type Department Care Team (Latest Contact Info) Description 09/30/[address] Media Message Enc [facility] Medical Group Multispecialty Care - [facility] 3 [facility], [address] [address] Jackson Sal MD 3 [facility], [address] [phone] Medication Questions Social History Tobacco Use Types Packs/Day Years Used Date Smoking Tobacco: Never Smokeless Tobacco: Never Alcohol Use Standard Drinks/Week Comments Not Currently 0 (1 standard drink = 0.6 oz pur e alcohol) PHQ-2 Answer Date Recorded PHQ-2 Score 0 09/19/2019 Comments No Sex and Gender Information Value Date Recorded Sex Assigned at Female 03/19/2024 9:04 AM CONVEYOR OPERATOR Legal Sex Female 2:39 PM CDT [...] Depression Total Score: 10 019 9:47 AM CONVEYOR OPERATOR documented as of this encounter Care Teams Railroad Track Mechanic Relationship Specialty Start Date End Date Olivia Roman DO [address] [place] [id number] PCP - General FAMILY PRACTICE 11/22/19 documented as of this encounter
[2024-11-25 06:58] LABS: Hematocrit 44.0 % (37.0-47.0); Hemoglobin 14.4 g/dL (12.0-15.0)
[2024-11-25 07:00] VITALS: BP 138/78; PULSE 85; RESP 16; TEMP 36.7; O2SAT 100
[2024-11-25] MEDS: ACETAMINOPHEN 500 MG TABLET 1000 MG PO (07:00)
[2024-11-25] MEDS: LACTATED RINGERS 1,000 ML 30 ML IV CONT ×2 (07:00→08:10)
--- NOTE | 2024-11-25 07:00 | WPDANESEPPF ---
Anes - Initial Pre Proc Eval Procedure: Operation Date: 11/25/24 07:30 Proposed Procedures p Hysteroscopy Dilation and Curettage - Shirlene Wyman MD Date/Time: 11/25/24 07:00 Surgeon: Shirlene Wyman MD Pre Op Diagnosis: Menorrhagia Patient Data Age: 43 Gender: F Height: 1.57 m Weight: 63.05 kg Allergies Allergy/AdvReac Type Severity Reaction Status Date / Time No Known Allergies Allergy Verified 11/14/24 10:01 Home Medications ?Medication ?Instructions ?Recorded ?Confirmed ?Type amiloride 5 mg tablet 5 mg PO DAILY 12/26/22 11/14/24 History losartan 25 mg tablet 25 mg PO DAILY 12/26/22 11/14/24 History potassium citrate 10 mEq (1,080 10 meq PO QID 12/26/22 11/14/24 History mg) tablet,extended release Laboratory Tests 11/25/24 06:53 Hgb Pending Hct Pending Sodium Pending Potassium Pending Chloride Pending Carbon Dioxide Pending Anion Gap Pending BUN Pending Creatinine Pending Estim Creat Clear Calc Pending Estimated GFR Pending Glucose Pending Calcium Pending Patient hx anesthesia problems: none Family hx anesthesia problems: none Results Review: All pre-operative results and documents have been reviewed as part of the pre-operative evaluation. 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 HTN (hypertension) History of kidney stones History of 8 separate procedures for her kidney stones Social History Social History Smoking status: Never smoker Second hand tobacco smoke exposure: Yes (not currently) Substance use: never Substance use type: does not use Living arrangements: with family Spiritual care concerns: No Anes - Eval Final PreProcedure Day of Procedure 11/25/24 07:00 Patient weight: normal Heart: regular rate and rhythm Lungs: clear to auscultation Airway: Mallampati scale class II Neurological: alert and oriented Last oral intake: >/= 8 hours ASA classification: II Emergent: no Anesthetic plan: proceed Anesthesia type and monitoring: general GIVS and standard monitoring Results Review: All pre-operative results and documents have been reviewed as part of the pre-operative evaluation. Informed Consent: The patient's anesthetic plan and its attendant risks and benefits were discussed with the patient/family/POA. Questions were solicited and answers provided to the satisfaction of the patient/family/POA.
--- NOTE | 2024-11-25 07:10 | WPDHPUPDATE1 ---
History and Physical Update Update Date/Time: 11/25/24 07:10 History and Physical has been reviewed, including an updated exam of the patient. There are NO changes in the patient's condition. Risks, benefits, and alternatives have been discussed and questions answered. Patient agrees to proceed with procedure.
--- NOTE | 2024-11-25 07:10 | PM.HPGS ---
History of Present Illness History of Present Illness Consent: Risks, benefits, and alternatives have been discussed and questions answered. Patient agrees to proceed with procedure. Chief complaint: Menorrhagia Narrative: Mirian Blanca is a 43 year old female with menorrhagia. Patient previously underwent D&C hysteroscopy in December of 2022 with benign findings. The patient has return heavy the prolonged cycles and it was recommended to re-evaluate. Options were discussed the patient she elected to proceed with D&C hysteroscopy in the operating room. Risks of infection, bleeding, perforation, and possible pathology were reviewed. Patient voices understanding agrees to proceed. 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 HTN (hypertension) History of kidney stones History of 8 separate procedures for her kidney stones Surgical History Surgical History (Updated 11/25/24 @ 07:13 by Shirlene Wyman MD) History of hysteroscopy With D&C 2022 benign Social History Social History Smoking status: Never smoker Second hand tobacco smoke exposure: Yes (not currently) Substance use: never Substance use type: does not use Living arrangements: with family Spiritual care concerns: No Meds Home Medications and Allergies Home Medications ?Medication ?Instructions ?Recorded ?Confirmed ?Type amiloride 5 mg tablet 5 mg PO DAILY 12/26/22 11/14/24 History losartan 25 mg tablet 25 mg PO DAILY 12/26/22 11/14/24 History potassium citrate 10 mEq (1,080 10 meq PO QID 12/26/22 11/14/24 History mg) tablet,extended release Allergies Allergy/AdvReac Type Severity Reaction Status Date / Time No Known Allergies Allergy Verified 11/14/24 10:01 Exam Const: General: healthy appearing and alert Orientation/consciousness: patient oriented x3 Resp: Effort & Inspection: normal respiratory effort : External Female Exam: normal external appearance Speculum Exam - Vagina: normal appearance of the vagina and normal vaginal discharge Speculum Exam - Cervix: normal appearance of the cervix Bimanual exam- vagina & uterus: uterine size normal and consistency normal Bimanual Exam- Adnexa, other: normal adnexae and No adnexal tenderness Neuro: General: patient oriented x3 Assessment and Plan Assessment and plan (1) Menorrhagia: Code(s): N92.0 - Excessive and frequent menstruation with regular cycle Status: Acute Assessment and Plan: Plan to proceed with D&C hysteroscopy for further evaluation
[2024-11-25 07:19] LABS: Anion Gap 8 mmol/L (4-12); Blood Urea Nitrogen 12 mg/dL (7-17); Calcium 8.7 mg/dL (8.4-10.2); Carbon Dioxide 27 mmol/L (22-30); Chloride 102 mmol/L (98-107); Estimated CRCL calculation 77 ml/min; Estimated Glomerular Filt Rate > 60; Glucose 99 mg/dL (65-110); Potassium 4.4 mmol/L (3.4-5.0); Sodium 137 mmol/L (137-145)
[2024-11-25 07:29] LABS: BEDSIDEPREGUCG Negative (Negative)
[2024-11-25] MEDS: KETOROLAC 30 MG/ML VIAL (*BKC) IV PUSH (07:42)
--- NOTE | 2024-11-25 07:44 | S_PTH ---
PATIENT: Mirian Blanca LOC: [facility]#:[id number] AGE/SX: 43/F ROOM: RE11/25/[address]: Shirlene Wyman MD : 1980 BED: DIS: 11/25/2024 SPEC #: [id number] RECD: 11/25/24 10:14 STATUS: COCO REErika #: [id number] [place]: 11/25/24 07:[address]: Shirlene Wyman DEPT: [facility] Surgical RECD BY: Cara Saavedra ENTERED: 11/25/24 10:14 SP TYPE: Surgical OTHR DR: Olivia Roman, DO Tissues: A - Endometrial Curettings Procedures: Hematoxylin and Eosin Stain Gross and Microscopic Level 4
--- NOTE | 2024-11-25 07:47 | W.PM.PROC2 ---
Procedure Note - Detailed Date of Procedure 11/25/24 Pre-op Diagnosis Menorrhagia Post-op Diagnosis Same Procedure Performed D&C hysteroscopy Surgeon Shirlene Wyman MD Anesthesia MAC Findings Uterus sounds to 8cm and appears grossly normal Description of Procedure The patient is taken operating room and placed under anesthesia in the dorsal lithotomy position. She was prepped and draped in usual sterile fashion. Marquette speculum was placed in the vagina and the cervix grasped on the anterior lip with a tenaculum. The uterus is sounded to 8cm. The diagnostic hysteroscope was placed and the endometrium evaluated. With no abnormalities noted, the hysteroscope was removed. The sharp curette was used to curette the endometrium until a good uterine cry was noted in all areas. All instruments were then removed. Sponge, needle, and instrument counts are correct per the OR staff. The patient was taken to recovery in stable condition. Estimated Blood Loss 5 Drains No Packing No Pathology Yes (Endometrial curettings) Complications No immediate complications Condition Stable Disposition PACU
[2024-11-25 07:50] VITALS: BP 88/47; PULSE 70; RESP 16; O2SAT 98
[2024-11-25 08:15] VITALS: BP 95/57; PULSE 61; RESP 16; O2SAT 99
[2024-11-25 08:45] VITALS: BP 131/78; PULSE 60; RESP 16
== END 2024-11-25 09:09 | disposition home or self-care (01) ==
PROVIDERS: Anesthesiology; PCP Family Medicine; Visit Provider Obstetrics & Gynecology Gynecology
PROC: 0U5B8ZZ Destruction of Endometrium, Via Natural or Artificial Opening Endoscopic (ICD-10-PCS; CPT 58563; principal; 2024-11-25 07:30)
DX: N85.8 Other specified noninflammatory disorders of uterus (principal); I10 Essential (primary) hypertension; N94.89 Other specified conditions associated with female genital organs and menstrual cycle; Z98.890 Other specified postprocedural states; Z87.442 Personal history of urinary calculi
CPT/HCPCS: 58558; 36415; 80048; 85014; 85018; 88305; A9270; J1885; J2003; J2250; J2704; J3010; J7120